=== PATIENT | male | born 1955 | race Caucasian/White ===

== ENCOUNTER 2019-01-21 17:31 | Emergency (ER) | payer OTHER ==
[2019-01-21] MEDS ORDERED: ONDANSETRON 4 MG/2 ML VIAL ONE (18:12)
[2019-01-21] MEDS ORDERED: MORPHINE 4 MG/ML SYR ONE ×2 (18:12→19:41)
--- NOTE | 2019-01-21 18:47 | RAD REPORT ---
EXAM DESCRIPTION: RAD - Hip Left 2 View - 01/21/2019 6:27 pm CLINICAL HISTORY: Left hip pain COMPARISON: None. FINDINGS: AP and frogleg views of the left hip were obtained. No acute fracture and no dislocation. Very advanced degenerative changes are present. Joint space is effaced. There is flattening of the fe moral head. Sclerotic changes are present in both the femoral head and acetabulum as well as subcorti precious degenerative cystic changes. No pathologic bone process. No periarticular mass or hematoma. IMPRESSION: Severe left hip joint degenerative changes with effacement of the joint space and flatte chino femoral head.
--- NOTE | 2019-01-21 19:40 | EDPHYS ---
Physician Documentation [facility] Name: Levar Godinez Age: 63 yrs Sex: Male : 1955 Arrival Date: 01/21/2019 Time: 17:36 Bed 8 Private MD: ED Physician Tae Berkowitz HPI: 01/21 17:50 This 63 yrs old Male presents to ER via EMS with complaints of Left Hip Pain. pm1 17:50 The patient or guardian reports pain. that occurred at home, There is no obvious pm1 deformity. The complaints affect the left hip. Onset: The symptoms/episode began/occurred Multiple months and has become worse the past 1 month. Modifying factors: The symptoms are alleviated by remaining still, the symptoms are aggravated by weight bearing. Associated signs and symptoms: Pertinent negatives: fever, numbness and weakness. The patient has experienced similar episodes in the past, chronically, and the symptoms today are exactly the same, Saw Dr. Evangelista about 1 month ago and was told that he needs a left hip replacement. Patient did not want to get it replaced at that time due to work. Patient would like to get it replaced now. No trauma. Historical: - Allergies: 17:43 No Known Allergies; ph - PMHx: 17:43 Hypertension; ph - PSHx: 17:43 right hip replacement; Appendectomy; bilateral knee scopes; ph - Immunization history:: Adult Immunizations unknown. - Social history:: Smoking status: Patient uses tobacco products, chewing tobacco. - Ebola Screening: : No symptoms or risks identified at this time. ROS: 17:50 Constitutional: Negative for fever, chills, and weight loss. pm1 17:50 Cardiovascular: Negative for chest pain, palpitations, and edema, Respiratory: Negative for shortness of breath, cough, wheezing, and pleuritic chest pain, Abdomen/GI: Negative for abdominal pain, nausea, vomiting, diarrhea, and constipation, Back: Negative for injury and pain, Skin: Negative for injury, rash, and discoloration. 17:50 Neuro: Negative for headache, weakness, numbness, tingling, and seizure. 17:50 MS/extremity: Positive for pain, of the left hip, Negative for decreased range of motion, deformity. 17:50 All other systems are negative. Exam: 17:50 Constitutional: This is a well developed, well nourished patient who is awake, alert, pm1 and in no acute distress. Head/Face: Normocephalic, atraumatic. Neck: Trachea midline, no thyromegaly or masses palpated, and no cervical lymphadenopathy. Supple, full range of motion without nuchal rigidity, or vertebral point tenderness. No Meningismus. Chest/axilla: Normal chest wall appearance and motion. Nontender with no deformity. No lesions are appreciated. Cardiovascular: Regular rate and rhythm with a normal S1 and S2. No gallops, murmurs, or rubs. Normal PMI, no JVD. No pulse deficits. Respiratory: Lungs have equal breath sounds bilaterally, clear to auscultation and percussion. No rales, rhonchi or wheezes noted. No increased work of breathing, no retractions or nasal flaring. Skin: Warm, dry with normal turgor. Normal color with no rashes, no lesions, and no evidence of cellulitis. 17:50 Musculoskeletal/extremity: Extremities: grossly normal except: noted in the left hip: tenderness, There is no evidence of decreased ROM, deformity, ROM: limited passive range of motion due to pain, in the left hip, Pulses: are normal with no appreciated deficits, noted to be 2+ in the left dorsalis pedis artery, Calf tenderness, is absent. 17:50 Neuro: Orientation: is normal, Motor: is normal, moves all fours. Vital Signs: 17:42 BP 149 / 86; Pulse 58; Resp 18; Temp 97.9; Pulse Ox 100% on R/A; Weight 122.47 kg; ph Height 6 ft. 1 in. (185.42 cm); Pain 10/10; 18:28 BP 151 / 86; Pulse 57; Resp 18; Pulse Ox 96% on R/A; ph 19:15 BP 155 / 75; Pulse 60; Resp 17; Pulse Ox 98% on R/A; Pain 6/10; rr5 19:35 BP 176 / 92; Pulse 65; Resp 19; Pulse Ox 99% ; Pain 10/10; rr5 19:42 BP 145 / 85; Pulse 62; Resp 16; Pulse Ox 98% ; Pain 10/10; rr5 17:42 Body Mass Index 35.62 (122.47 kg, 185.42 cm) ph MDM: 17:43 Patient medically screened. pm1 19:02 Data reviewed: vital signs. Data interpreted: Pulse oximetry: on room air is 98 %. pm1 Interpretation: normal. 19:20 Counseling: I had a detailed discussion with the patient and/or guardian regarding: the pm1 historical points, exam findings, and any diagnostic results supporting the discharge/admit diagnosis, radiology results, the need for outpatient follow up, for definitive care, a orthopedic surgeon. 19:20 Special discussion: Discussed with family and patient that there is no current pm1 indication for admission to the hospital. Family requested that I contact Dr. Evangelista for admission to hospital for left hip replacement. 19:25 Physician consultation: Daniel Evangelista MD was called at 19:25, was contacted at pm1 19:25, regarding patient's condition, and will see patient in office, Said that the patient can contact the office to schedule an appointment for Tuesday. Recalls patient, patient was recommend hip replacement in the past but refused. Due to patient's age does not recommend steroids and narcotics . 01/21 17:49 Order name: Hip Left 2 View XRAY; Complete Time: 18:54 pm1 Administered Medications: 18:23 Drug: morphine 4 mg Route: IVP; Site: right antecubital; ph 18:49 Follow up: Response: No adverse reaction; Pain is decreased; RASS: Alert and Calm (0) ph 18:23 Drug: Zofran 4 mg Route: IVP; Site: right antecubital; ph 18:49 Follow up: Response: No adverse reaction ph 19:46 Drug: morphine 4 mg {Note: rass 0.} Route: IVP; Site: right antecubital; rr5 20:07 Follow up: Response: No adverse reaction; Medication administered at discharge. rr5 Disposition: 01/22 13:02 Co-signature as Attending Physician, Tae Berkowitz MD I agree with the assessment and kdr plan of care. Disposition: 01/21/19 19:40 Discharged to Home. Impression: Pain in left hip. - Condition is Stable. - Discharge Instructions: Hip Pain. - Prescriptions for Mobic 7.5 mg Oral Tablet - take 1 tablet by ORAL route once daily take with food; 20 tablet. - Medication Reconciliation Form, Thank You Letter, Antibiotic Education, Prescription Opioid Use form. - Follow up: Emergency Department; When: As needed; Reason: Worsening of condition. Follow up: Private Physician; When: 2 - 3 days; Reason: Recheck today's complaints, Continuance of care, Re-evaluation by your physician. Follow up: Daniel Evangelista MD; When: 2 - 3 days; Reason: Recheck today's complaints, Continuance of care, Re-evaluation by your physician. - Problem is new. - Symptoms have improved. Signatures: Dispatcher [employer] EDMS Tae Berkowitz MD MD kdr Jada Jalloh RN RN bb Darline Tavera RN RN ph Jean Rivera, CAT DRIVER CAT DRIVER pm1 Will Saenz RN RN rr5 Corrections: (The following items were deleted from the chart) 01/21 19:43 19:40 01/21/2019 19:40 Discharged to Home. Impression: Pain in left hip. Condition is pm1 Stable. Forms are Medication Reconciliation Form, Thank You Letter, Antibiotic Education, Prescription Opioid Use. Follow up: Emergency Department; When: As needed; Reason: Worsening of condition. Follow up: Private Physician; When: 2 - 3 days; Reason: Recheck today's complaints, Continuance of care, Re-evaluation by your physician. Problem is new. Symptoms have improved. pm1 20:06 19:53 Misc. Order ordered. pm1 bb 20: 19:43 01/21/2019 19:40 Discharged to Home. Impression: Pain in left hip. Condition is bb Stable. Discharge Instructions: Hip Pain. Prescriptions for Diclofenac Sodium 75 mg Oral Tablet Sustained Release - take 1 tablet by ORAL route 2 times per day; 30 tablet. and Forms are Medication Reconciliation Form, Thank You Letter, Antibiotic Education, Prescription Opioid Use. Follow up: Emergency Department; When: As needed; Reason: Worsening of condition. Follow up: Private Physician; When: 2 - 3 days; Reason: Recheck today's complaints, Continuance of care, Re-evaluation by your physician. Follow up: Daniel Evangelista; When: 2 - 3 days; Reason: Recheck today's complaints, Continuance of care, Re-evaluation by your physician. Problem is new. Symptoms have improved. pm1 01/22 04:03 01/21 19:25 Physician consultation: Daniel Evangelista MD was called at 19:31, was pm1 contacted at 19:25, regarding patient's condition, and will see patient in office, Patient can contact the office to schedule an appointment for Tuesday. Recalls patient, patient was recommend hip replacement in the past but refused. Due to patient's age does not recommend steroids and narcotics , pm1
--- NOTE | 2019-01-21 19:40 | ER ---
Nurse's Notes [facility] Name: Levar Godinez Age: 63 yrs Sex: Male : 1955 Arrival Date: 01/21/2019 Time: 17:36 Bed 8 Private MD: Diagnosis: Pain in left hip Presentation: 01/21 17:37 Presenting complaint: EMS states: Pt c/o L hip pain, denies fall or known injury, ph states, " I have been feeling popping in my hip when I stand for about a month but today I couldn't walk on that leg w/out it popping and really hurting." Hx of arthritis and R hip replacement. 100 mcg Fentanyl and 1 gram IV Tylenol administered. Transition of care: patient was not received from another setting of care. Onset of symptoms was January 21, 2019. Risk Assessment: Do you want to hurt yourself or someone else? Patient reports no desire to harm self or others. Initial Sepsis Screen: Does the patient meet any 2 criteria? No. Patient's initial sepsis screen is negative. Does the patient have a suspected source of infection? No. Patient's initial sepsis screen is negative. Care prior to arrival: IV initiated. 18 GA, in the right antecubital area. 17:37 Method Of Arrival: EMS: [facility] ph 17:37 Acuity: ADRIANA 3 ph Historical: - Allergies: 17:43 No Known Allergies; ph - PMHx: 17:43 Hypertension; ph - PSHx: 17:43 right hip replacement; Appendectomy; bilateral knee scopes; ph - Immunization history:: Adult Immunizations unknown. - Social history:: Smoking status: Patient uses tobacco products, chewing tobacco. - Ebola Screening: : No symptoms or risks identified at this time. Screenin:27 Abuse screen: Denies threats or abuse. Denies injuries from another. Nutritional ph screening: No deficits noted. Tuberculosis screening: No symptoms or risk factors identified. Fall Risk No fall in past 12 months (0 pts). No secondary diagnosis (0 pts). IV access (20 points). Ambulatory Aid- Crutches/Cane/Walker (15 pts). Gait- Impaired (20 pts.). Mental Status- Oriented to own ability (0 pts). Total Morales Fall Scale indicates High Risk Score (45 or more points). Fall prevention measures have been instituted. Side Rails Up X 2 Frequent Obs/Assessments Occuring Family Present and informed to notify staff if the need to leave the bedside As available patient and family educated on Fall Prevention Program and Strategies. Assessment: 17:45 General: Appears in no apparent distress. uncomfortable, well groomed, Behavior is ph calm, cooperative, appropriate for age. Pain: Complains of pain in left hip. Neuro: Level of Consciousness is awake, alert, obeys commands, Oriented to person, place, time, situation. Cardiovascular: Capillary refill < 3 seconds in bilateral fingers Patient's skin is warm and dry. Cardiovascular: Pulses are 3+ in right dorsalis pedis artery and left dorsalis pedis artery. Respiratory: Airway is patent Respiratory effort is even, unlabored, Respiratory pattern is regular, symmetrical. Derm: Skin is intact, is healthy with good turgor, Skin is pink, warm \\T\\ dry. Musculoskeletal: Circulation, motion, and sensation intact. Range of motion: limited in left hip Reports pain in left hip. 19:00 General: Appears in no apparent distress. comfortable, Behavior is calm, cooperative, rr5 appropriate for age. Pain: Complains of pain in left hip Pain radiates to left leg Pain currently is 6 out of 10 on a pain scale. Quality of pain is described as aching, Pain began gradually, Is intermittent. Neuro: Level of Consciousness is awake, alert, obeys commands, Oriented to person, place, time, situation, Appropriate for age. Cardiovascular: Capillary refill < 3 seconds Patient's skin is warm and dry. Respiratory: Airway is patent Respiratory effort is even, unlabored, Respiratory pattern is regular, symmetrical. GI: No signs and/or symptoms were reported involving the gastrointestinal system. : No signs and/or symptoms were reported regarding the genitourinary system. EENT: No signs and/or symptoms were reported regarding the EENT system. Derm: Skin is intact, is healthy with good turgor, Skin is pink, warm \\T\\ dry. Musculoskeletal: Circulation, motion, and sensation intact. Capillary refill < 3 seconds. 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 ED provider spoke to dr. evangelista thru phone and responded to make appointment on [place]. Charge nurse aware. 19:42 Reassessment: complaints of left hip pain pain score 10/10. ED provider aware with rr5 order made and carried out. see MAR. 19:56 Reassessment: Reassessment: pt and spouse angry because he is not going to be admitted bb for degenerative hip disease, pt and family refusing discharge instructions pt assisted to exit via wheelchair. Vital Signs: 17:42 BP 149 / 86; Pulse 58; Resp 18; Temp 97.9; Pulse Ox 100% on R/A; Weight 122.47 kg; ph Height 6 ft. 1 in. (185.42 cm); Pain 10/10; 18:28 BP 151 / 86; Pulse 57; Resp 18; Pulse Ox 96% on R/A; ph 19:15 BP 155 / 75; Pulse 60; Resp 17; Pulse Ox 98% on R/A; Pain 6/10; rr5 19:35 BP 176 / 92; Pulse 65; Resp 19; Pulse Ox 99% ; Pain 10/10; rr5 19:42 BP 145 / 85; Pulse 62; Resp 16; Pulse Ox 98% ; Pain 10/10; rr5 17:42 Body Mass Index 35.62 (122.47 kg, 185.42 cm) ph ED Course: 17:36 Patient arrived in ED. ph 17:42 Triage completed. ph 17:43 Jean Rivera NP is PHCP. pm1 17:43 Tae Berkowitz MD is Attending Physician. pm1 17:44 Arm band placed on Patient placed in an exam room, on a stretcher, on pulse oximetry. ph 18:04 Darline Tavera, RN is Primary Nurse. ph 18:27 Patient has correct armband on for positive identification. Bed in low position. Call ph light in reach. Side rails up X2. Pulse ox on. NIBP on. Door closed. Noise minimized. Warm blanket given. 18:28 Hip Left 2 View XRAY In Process Unspecified. EDMS 18:59 Maintain EMS IV. Dressing intact. Good blood return noted. Site clean \\T\\ dry. Gauge \\T\\ ph site: 18 LAC. 19:43 Daniel Evangelista MD is Referral Physician. pm1 20:04 IV discontinued, intact, bleeding controlled, No redness/swelling at site. Pressure bb dressing applied. 20:04 No provider procedures requiring assistance completed. bb Administered Medications: 18:23 Drug: morphine 4 mg Route: IVP; Site: right antecubital; ph 18:49 Follow up: Response: No adverse reaction; Pain is decreased; RASS: Alert and Calm (0) ph 18:23 Drug: Zofran 4 mg Route: IVP; Site: right antecubital; ph 18:49 Follow up: Response: No adverse reaction ph 19:46 Drug: morphine 4 mg {Note: rass 0.} Route: IVP; Site: right antecubital; rr5 20:07 Follow up: Response: No adverse reaction; Medication administered at discharge. rr5 Outcome: 19:40 Discharge ordered by MD. pm1 20:04 Discharged to home via wheelchair, with family. bb 20:04 Condition: stable 20:04 Discharge instructions given to patient, family, Instructed on discharge instructions, follow up and referral plans. 20:06 Patient left the ED. bb Signatures: Dispatcher [employer] Jada Matute RN RN bb Darline Tavera RN RN Jean Rivera, SENG UNDERWEAR FINISHER pm1 Will Saenz RN RN rr5
[2019-01-21 20:11] VITALS: TEMP 97.9
[2019-01-21 20:14] VITALS: BP 155/75; O2SAT 98
== END 2019-01-21 20:06 | disposition home or self-care (01) ==
LOC: ER 17:31
DX: M25.552 Pain in left hip (principal); Z96.641 Presence of right artificial hip joint; Z72.3 Lack of physical exercise
CPT/HCPCS: 73502; J2405; 96374; 96375; 99284

== ENCOUNTER 2020-01-18 17:19 | Emergency (ER) | payer OTHER ==
[2020-01-18] MEDS ORDERED: DIAZEPAM 5 MG TABLET ONE (18:21)
[2020-01-18] MEDS ORDERED: MORPHINE 4 MG/ML SYR ONE (18:22)
[2020-01-18] MEDS ORDERED: KETOROLAC 30 MG/ML INJ ONE (18:22)
--- NOTE | 2020-01-18 18:55 | EDPHYS ---
Physician Documentation [facility] Name: Levar Godinez Age: 64 yrs Sex: Male : 1955 Arrival Date: 01/18/2020 Time: 17:22 Bed 17 Private MD: ED Physician Jak Woodson HPI: 01/17 17:34 This 64 yrs old Male presents to ER via Ambulatory with complaints of Back jmm Pain. 17:34 The patient presents with pain that is acute. Onset: The symptoms/episode jmm began/occurred acutely, 2 day(s) ago. The pain does not radiate. Associated signs and symptoms: Pertinent negatives: abdominal pain, chest pain, constipation, dysuria, fever, headache, hematuria, incontinence, nausea, numbness, tingling, urinary retention, vomiting, weakness. The problem was sustained when bending over, from twisting. Historical: - Allergies: 17:30 No Known Allergies; ll1 - PMHx: 17:30 Hypertension; ll1 - PSHx: 17:30 bilateral knee scopes; right hip replacement; Appendectomy; L hip replacement; ll1 - Immunization history:: Flu vaccine is not up to date. - Social history:: Smoking status: Patient denies any tobacco usage or history of. ROS: 17:34 Constitutional: Negative for fever, chills, and weight loss, Cardiovascular: Negative jmm for chest pain, palpitations, and edema, Respiratory: Negative for shortness of breath, cough, wheezing, and pleuritic chest pain. 17:34 Back: Positive for pain with movement. 17:34 All other systems are negative. Exam: 17:34 Constitutional: This is a well developed, well nourished patient who is awake, alert, jmm and in no acute distress. Head/Face: atraumatic. Eyes: EOMI, no conjunctival erythema appreciated ENT: Moist Mucus Membranes Neck: Trachea midline, Supple Chest/axilla: Normal chest wall appearance and motion. Cardiovascular: Regular rate and rhythm. No edema appreciated Respiratory: Normal respirations, no respiratory distress appreciated Abdomen/GI: Non distended, soft Back: Normal ROM Skin: General appearance color normal 17:34 Musculoskeletal/extremity: extensor hallucis longus intact bilaterally. 17:34 Neuro: Orientation: is normal, Mentation: is normal, Memory: is normal. 17:34 Psych: Behavior/mood is pleasant, cooperative. Vital Signs: 17:28 BP 146 / 93; Pulse 75; Resp 18; Temp 98.5; Pulse Ox 99% ; Weight 122.47 kg; Height 6 ll1 ft. 0 in. (182.88 cm); Pain 9/10; 19:15 BP 135 / 86; Pulse 73; Resp 16 S; Pulse Ox 99% on R/A; jd3 17:28 Body Mass Index 36.62 (122.47 kg, 182.88 cm) ll1 MDM: 17:34 Patient medically screened. tiffanie 18:52 Data reviewed: vital signs, nurses notes. Counseling: I had a detailed discussion with savanna the patient and/or guardian regarding: the historical points, exam findings, and any diagnostic results supporting the discharge/admit diagnosis, the need for outpatient follow up, to return to the emergency department if symptoms worsen or persist or if there are any questions or concerns that arise at home. ED course: Pain relieved in the ED. Patient is advised to follow up with pain management and otherwise given strict return precautions. Patient understood and agrees with the plan of care. . Administered Medications: 18:17 Drug: morphine 4 mg Route: IM; Site: right deltoid; jd3 19:16 Follow up: Response: No adverse reaction; RASS: Alert and Calm (0) jd3 18:17 Drug: Valium 5 mg Route: PO; jd3 19:16 Follow up: Response: No adverse reaction jd3 18:17 Drug: Ketorolac 30 mg Route: IM; Site: left deltoid; jd3 19:16 Follow up: Response: No adverse reaction jd3 Disposition: 01/18 17:57 Co-signature as Attending Physician, Jak Woodson MD I agree with the assessment and [facility] plan of care. Disposition: 01/18/20 18:54 Discharged to Home. Impression: Muscle spasm of back. - Condition is Stable. - Discharge Instructions: Muscle Cramps and Spasms. - Prescriptions for Zanaflex 4 mg Oral Tablet - take 1 tablet by ORAL route every 8 hours As needed; 20 tablet. - Medication Reconciliation Form, Thank You Letter, Antibiotic Education, Prescription Opioid Use form. - Follow up: Private Physician; When: 2 - 3 days; Reason: Recheck today's complaints, Continuance of care, Re-evaluation by your physician. Signatures: Jak Woodson MD MD cha Mickail, Joel, PA PA jmm Davies, Jonathon, RN RN jd3 Atilio Larsen RN RN ll1 Corrections: (The following items were deleted from the chart) 01/17 19:16 18:54 01/18/2020 18:54 Discharged to Home. Impression: Muscle spasm of back. Condition jd3 is Stable. Forms are Medication Reconciliation Form, Thank You Letter, Antibiotic Education, Prescription Opioid Use. Follow up: Private Physician; When: 2 - 3 days; Reason: Recheck today's complaints, Continuance of care, Re-evaluation by your physician. savanna
--- NOTE | 2020-01-18 18:55 | ER ---
Nurse's Notes [facility] Name: Levar Godinez Age: 64 yrs Sex: Male : 1955 Arrival Date: 01/18/2020 Time: 17:22 Bed 17 [facility] MD: Diagnosis: Muscle spasm of back Presentation: 01/17 17:28 Chief complaint: Patient states: Left lower back pain for 2 days after tripping over 1 lumbar and falling yesterday. Coronavirus screen: Client denies travel out of the [place] in the last 14 days. At this time, the client does not indicate any symptoms associated with coronavirus-19. Ebola Screen: Patient denies travel to an Ebola-affected area in the 21 days before illness onset. Initial Sepsis Screen: Does the patient meet any 2 criteria? No. Patient's initial sepsis screen is negative. Does the patient have a suspected source of infection? Yes: Bone or joint infection. Risk Assessment: Do you want to hurt yourself or someone else? Patient reports no desire to harm self or others. Onset of symptoms was January 17, 2020. 17:28 Method Of Arrival: Ambulatory [facility] 17:28 Acuity: ADRIANA 3 ll1 Historical: - Allergies: 17:30 No Known Allergies; ll1 - PMHx: 17:30 Hypertension; ll1 - PSHx: 17:30 bilateral knee scopes; right hip replacement; Appendectomy; L hip replacement; ll1 - Immunization history:: Flu vaccine is not up to date. - Social history:: Smoking status: Patient denies any tobacco usage or history of. Screenin:51 Abuse screen: Denies threats or abuse. Nutritional screening: No deficits noted. jd3 Tuberculosis screening: No symptoms or risk factors identified. Fall Risk Ambulatory Aid- None/Bed Rest/Nurse Assist (0 pts). Gait- Normal/Bed Rest/Wheelchair (0 pts) Mental Status- Oriented to own ability (0 pts). Total Morales Fall Scale indicates No Risk (0-24 pts). Assessment: 18:17 General: Appears in no apparent distress. uncomfortable, Behavior is calm, cooperative, jd3 appropriate for age. Pain: Complains of pain in back Quality of pain is described as sharp, stabbing. Neuro: Level of Consciousness is awake, alert, obeys commands, Oriented to person, place, time, situation. Cardiovascular: Denies chest pain, Capillary refill < 3 seconds Patient's skin is warm and dry. Respiratory: Airway is patent Respiratory effort is even, unlabored, Respiratory pattern is regular, symmetrical, Denies cough, shortness of breath. GI: No signs and/or symptoms were reported involving the gastrointestinal system. : No signs and/or symptoms were reported regarding the genitourinary system. EENT: No signs and/or symptoms were reported regarding the EENT system. Derm: Skin is intact, Skin is dry, Skin is normal, Skin temperature is warm. Musculoskeletal: Circulation, motion, and sensation intact. Range of motion: intact in all extremities. 18:51 Reassessment: Patient appears in no apparent distress at this time. No changes from [facility] previously documented assessment. Patient and/or family updated on plan of care and expected duration. Pain level reassessed. Patient is alert, oriented x 3, equal unlabored respirations, skin warm/dry/pink. 19:15 Reassessment: Patient appears in no apparent distress at this time. Patient and/or jd3 family updated on plan of care and expected duration. Pain level reassessed. Patient is alert, oriented x 3, equal unlabored respirations, skin warm/dry/pink. Patient states feeling better. Vital Signs: 17:28 BP 146 / 93; Pulse 75; Resp 18; Temp 98.5; Pulse Ox 99% ; Weight 122.47 kg; Height 6 ll1 ft. 0 in. (182.88 cm); Pain 9/10; 19:15 BP 135 / 86; Pulse 73; Resp 16 S; Pulse Ox 99% on R/A; jd3 17:28 Body Mass Index 36.62 (122.47 kg, 182.88 cm) ll1 ED Course: 17:22 Patient arrived in ED. ds1 17:30 Triage completed. ll1 17:30 Arm band placed on Patient placed in an exam room, on a stretcher. 1 17:34 Armando Marie PA is PHCP. [facility] 17:34 Jak Woodson MD is Attending Physician. [facility] 17:45 Luis Gibbons RN is Primary Nurse. jd3 18:51 Patient has correct armband on for positive identification. Bed in low position. Call j light in reach. Side rails up X 1. Pulse ox on. NIBP on. 19:15 No provider procedures requiring assistance completed. Patient did not have IV access jd3 during this emergency room visit. Administered Medications: 18:17 Drug: morphine 4 mg Route: IM; Site: right deltoid; jd3 19:16 Follow up: Response: No adverse reaction; RASS: Alert and Calm (0) jd3 18:17 Drug: Valium 5 mg Route: PO; jd3 19:16 Follow up: Response: No adverse reaction jd3 18:17 Drug: Ketorolac 30 mg Route: IM; Site: left deltoid; jd3 19:16 Follow up: Response: No adverse reaction jd3 Outcome: 18:54 Discharge ordered by . savanna 19:15 Discharged to home ambulatory, with family. jd3 19:15 Condition: stable 19:15 Discharge instructions given to patient, Instructed on discharge instructions, follow up and referral plans. medication usage, Demonstrated understanding of instructions, follow-up care, medications, Prescriptions given X 1. 19:16 Patient left the ED. jd3 Signatures: Armando Marie PA PA jmm Sanford, Demi ds1 Luis Gibbons RN RN jAtilio Norton RN RN ll1
[2020-01-18 19:24] VITALS: TEMP 98.5; O2SAT 99
[2020-01-18 19:25] VITALS: BP 135/86
== END 2020-01-18 19:16 | disposition home or self-care (01) ==
LOC: ER 17:19
DX: M62.830 Muscle spasm of back (principal); I10 Essential (primary) hypertension
CPT/HCPCS: 96372; 99283

== ENCOUNTER 2020-03-31 15:53 | Emergency (ER) | payer OTHER ==
--- OUTSIDE RECORDS SUMMARY | 2020-03-31 15:55 | XMS REPORT | Clinical Summary ---
:1955 Author Organization [facility] Address [address] [place] [address] Care Team Providers Name Role Phone Asked, Pcp Primary Care Provider Unavailable Allergies Not on File Medications Not on file Active Problems Not on file Encounters Date Type Specialty Care Team Description 03/17/2020 Transcribe Orders Luis Bush nosalley, lumbar region without neurogenic claudication (Primary Dx); MD Anthony Other intervert ebral disc degeneration, lumbar region; Other secondary scoliosis, lumbar region 03/11/2020 Hospital Encounter Radiology Luis Otto st enosis, lumbar MD Anthony region with wesly rogenic claudication 03/11/2020 Travel 02/15/2020 Travel 02/15/2020 Transcribe Orders Luis Bush nosalley, lumbar MD Anthony region with wesly rogenic claudication (P rimary Dx) after 03/31/2019 Social History Tobacco Use Types Packs/Day Years Used Date Never Assessed Sex Assigned at Date Recorded Not on file Job Start Date Occupation Industry Not on file Not on file Not on file COVID-19 Exposure Response Date Recorded In the last month, have you been in contact with No / Unsure 03/11/2020 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 Last Filed Vital Signs Not on file Plan of Treatment Date Type Specialty Care Team Description 04/22/2020 [place] [id number] [address] Health Maintenance Due Date Last Done Comments COVID-19 VACCINE (#1) 1973 COLONOSCOPY SCREENING 10/16/2007 SHINGLES VACCINES (#1) 10/16/2007 INFLUENZA VACCINE 11/10/2019 Procedures Procedure Name Priority Date/Time Associated Diagnosis Comme nts MRI LUMBAR SPINE WO Routine 03/11/2020 11:44 Spinal stenosis, Results for this CONTRAST AM IMPREGNATOR OPERATOR lumbar region with procedure are in neurogenic the results claudication section. after 03/31/2019 Results MRI Lumbar Spine Wo Contrast (03/11/2020 11:44 AM IMPREGNATOR OPERATOR) Specimen Narrative Performed At This result has an attachment that is no t available. EXAMINATION: MRI LUMBAR SPINE WO CONTRAST [facility] CLINICAL HISTORY: M48.062 Spinal stenosi s lumbar region with neurogenic claudication, m48.062 COMPARISON: None TECHNIQUE: Multiplanar multisequence non contrast enhanced examination was performed of the Lumbar spine. FINDINGS: There are multiple Schmorl's nodes. I do not see definite evidence of acute endplate fracture or upper sacral fracture. There are degenerative changes of the sacroiliac joints. The distal cord ends at the T12-L1 level and is unremarkable. There is decreased T2 signal intensity in multiple lumbar discs . L5-S1: There is greater posterior disc space narrowing. There is dorsal spondylosis indenting the anterior subarachnoid space. There are facet hypertrophic changes. There is no significant central c anal stenosis. There is moderate to severe right and mild left foraminal stenosis with asymme tric spondylosis and/or protrusion in the inferior right foramen and extraforaminal region. It extends near the nerve in the extraforaminal region. There is greater right disc space narrowing with surrounding degenerative changes and Schmorl's nodes. L4-5: There is greater posterior and lef t disc space narrowing with surrounding degenerative changes and Schmorl's nodes around the left disc. There is dorsal spondylosis indenting the anterior subarach noid space extending near the left L5 nerve root. There are facet hypertrophic changes ind enting the posterolateral subarachnoid space. There is greater narrowing of the left lateral recess with mild narrowing in the AP dimension of the central subarachnoid space. There is severe left and mild to moderate right foraminal stenosis. There is left extraforaminal spondylosis extending near the nerve. L3-4: There is greater posterior disc sp allyson narrowing. There is dorsal spondylosis with bulge and mass effect on the nerve roots in the subarachnoid space. There is posterior epidural fat. There is mode rate to severe narrowing of the subarachnoid space. There are facet hypertrophic changes wi th severe left and moderate right foraminal stenosis. L2-3: There is severe right and posterio r disc space narrowing and surrounding endplate degenerative changes. There is retrolisthesis with uncovered disc and bulge with mass effect on the nerve roots in the anterior subarachnoid space. There is posterior epidural fat. There is moderate to elisabeth re narrowing of the subarachnoid space. There are facet hypertrophic changes with lateral recess stenosis. There is a protrusion and spondylosis in the right fo ramen and extraforaminal region extending into the nerve with severe right foramen stenosis . There is [id number] anterior inferior left foramen stenosis. L1-2: There is greater posterior disc sp allyson narrowing. There is bulge flattening the anterior subarachnoid space. There are facet hypertrophic changes and posterior epidural fat. There is mild narrowing in the AP dimension of the central subarachnoid space and mild foramen stenosis. T11-12: There is dorsal spondylosis in denting the anterior subarachnoid space. The study was not performed for proper i maging of the soft tissue structures in the abdomen and pelvis. There is partial visualization of a large right kidney cyst. IMPRESSION: Degenerative changes. There is prominent foraminal stenosis on the left at L4-5 and L3-4. There is prominent right foraminal stenosis at L5-S1 and L2-3 and to a lesser extent at L3-4. Extra foraminal spondylosis and protrusi ons at some of the levels extending through the nerves. Narrowing of the subarachnoid space more prominent at L3-4 and L2-3. [facility]-[id number] Procedure Note Hm Interface, Radiology Results - 03/11/2020 12:47 PM IMPREGNATOR OPERATOR EXAMINATION: MRI LUMBAR SPINE WO CONTRAST CLINICAL HISTORY: M48.062 Spinal stenosi s lumbar region with neurogenic claudication, m48.062 COMPARISON: None TECHNIQUE: Multiplanar multisequence non contrast enhanced examination was performed of the Lumbar spine. FINDINGS: There are multiple Schmorl's nodes. I do not see definite evidence of acute endplate fracture or upper sacral fracture. There are degenerative changes of the sacroiliac joints. The distal cord ends at the T12-L1 level and is unremarkable. There is decreased T2 signal intensity in multipl e lumbar discs. L5-S1: There is greater posterior disc space narrowing. There is dorsal spondylosis indenting the anterior subarachnoid space. There are facet hypertrophic changes. There is no significant central canal stenosis. There is moderate to severe right and mild left foraminal stenosis with asymme tric spondylosis and/or protrusion in the inferior right foramen and extraforaminal region. It extends near the nerve in the extraforaminal region. There is greater right disc space narrowing with surrounding degenerative changes and Schmorl's nodes . L4-5: There is greater posterior and lef t disc space narrowing with surrounding degenerative changes and Schmorl's nodes around the left disc. There is dorsal spondylosis indenting the anterior subarachnoid space extending near the left L5 nerve root. There are facet hypertrophic changes ind enting the posterolateral subarachnoid space. There is greater narrowing of the left lateral recess with mild narrowing in the AP dimension of the central subarachnoid space. There is severe left and mild to moderate right foraminal stenosis. There is left extraforaminal spondylosis extending near the nerve. L3-4: There is greater posterior disc sp allyson narrowing. There is dorsal spondylosis with bulge and mass effect on the nerve roots in the subarachnoid space. There is posterior epidural fat. There is moderate to severe narrowing of the subarachnoid spa ce. There are facet hypertrophic changes wi th severe left and moderate right foraminal stenosis. L2-3: There is severe right and posterio r disc space narrowing and surrounding endplate degenerative changes. There is retrolisthesis with uncovered disc and bulge with mass effect on the nerve roots in the anterior subarachnoid space. There is po sterior epidural fat. There is moderate to elisabeth re narrowing of the subarachnoid space. There are facet hypertrophic changes with lateral recess stenosis. There is a protrusion and spondylosis in the right foramen and extraforaminal region extending into the nerve with severe right foramen stenosis . There is gqam-db-xorvgpwi anterior inferior left foramen stenosis. L1-2: There is greater posterior disc sp allyson narrowing. There is bulge flattening the anterior subarachnoid space. There are facet hypertrophic changes and posterior epidural fat. There is mild narrowing in the AP dimension of the central subarachnoid space and mild foramen stenosis. T11-12: There is dorsal spondylosis ind enting the anterior subarachnoid space. The study was not performed for proper i maging of the soft tissue structures in the abdomen and pelvis. There is partial visualization of a large right kidney cyst. IMPRESSION: Degenerative changes. There is prominent foraminal stenosis on the left at L4-5 and L3-4. There is prominent right foraminal stenosis at L5-S1 and L2-3 and to a lesser extent at L3-4. Extra foraminal spondylosis and protrusi ons at some of the levels extending through the nerves. Narrowing of the subarachnoid space more prominent at L3-4 and L2-3. 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
--- OUTSIDE RECORDS SUMMARY | 2020-03-31 15:56 | XMS REPORT | Continuity of Care Document ---
:1955 Author Organization [facility] t Address [address] [place] [address] Care Team Providers Name Role Phone Asked, Pcp Primary Care Physician Unavailable Anthony Chang MD Attending Clinician Lab, Fam Pob I Attending Clinician Unavailable Pob, Lab Main Attending Clinician Unavailable Pob1, Care Clinic Attending Clinician Unavailable Doctor Unassigned, Name Attending Clinician Unavailable Hiram Evangelista MD Attending Clinician Hiram Evangelista MD Admitting Clinician Payers Payer Name Policy Type Policy Effective Date Expiration Date Sour Number MEDICAREMEDICARE PART [id number] 2010 Angel Kitchen AND 00:00:00 [facility] [id number]/04/2009 [place] [place] [place] Problems This patient has no known problems. Allergies, Adverse Reactions, Alerts This patient has no known allergies or adverse reactions. Social History Social Habit Start Date Stop Date Quantity Comments Source Sex Assigned At Mariusz Avery Exposure to SARS-CoV-2 Not sure Angel Avery (event) Medications This patient has no known medications. Procedures Procedure Date / Time Performed Performing Clinician Vianca e MRI LUMBAR SPINE WO 2020-03-11 11:44:33 Alex Chang [facility]astrian CONTRAST Plan of Care Planned Activity Planned Date Details Comments Source Future Scheduled 2019-11-10 INFLUENZA VACCINE [place] [facility] 00:00:00 [code = INFLUENZA VACCINE] Future Scheduled 2007-10-16 COLONOSCOPY SCREENING [facility] us[facility]ora [facility] Test 00:00:00 [code = COLONOSCOPY SCREENING] Future Scheduled 2007-10-16 SHINGLES VACCINES [place] [facility] 00:00:00 (#1) [code = SHINGLES VACCINES (#1)] Future Scheduled 1973 COVID-19 VACCINE (#1) Ho mariusz [facility] Test 00:00:00 [code = COVID-19 VACCINE (#1)] Encounters Start End Encounter Admission Attending Care Care Encounter Source Date/Time Date/Time Type Type Clinicians Facility Department ID 2020-03-11 2020-03-11 Outpatient ALEX CHANG [facility] [id number] [place] 00:00:00 00:00:[address] 2019 2019 Laboratory Lab, [facility] [id number] 07:32:33 07:52:33 Only Fam Pob Health [id number] [place] [id number] Professio [phone] nal [address] 2019-08-27 2019-08-27 Lsw Pob, [facility] 1.2.840.114 [id number] 15:41:32 15:56:32 Visit Lab Main [place] [id number] [place] [id number] Professio [phone] [address] 2019-08-27 2019-08-27 Urgent Pob1, Acute [place] 1.2.840.114 [id number] 14:26:36 14:46:36 [facility] [id number] [place] [id number] Professio [phone] nal 0[address] 2019-08-27 2019-08-27 Orders Doctor ALEX [id number] 00:00:00 00:00:00 Only Unassigned, [place] [id number] [facility] [id number] 2019-05-16 2019-05-17 [facility] [id number] 06:00:00 14:39:00 Encounter Daniel Palmer [id number]7.2.686 [place] [phone] [id number] 2019-05-16 2019-05-16 Orders Doctor ALEX [id number] 00:00:00 00:00:00 Only Unassigned, [place] [id number] [place] [address]686 [id number] [id number] 2019-05-14 2019-05-14 Orders Doctor ALEX [id number] 00:00:00 00:00:00 Only Unassigned, [place] [id number] [place] [address]686 [id number] Results Test Description Test Time Test Comments Results Result Sourc e Comments MRI Lumbar Spine Hm Interface, [place] Wo Contrast 1 Radiology Results Method ist 12:44:42 Incoming - 03/11/2020 12:47 PM CSTEXAMINATION: MRI LUMBAR SPINE WO CONTRASTCLINICAL HISTORY: M48.062 Spinal stenosis lumbar region with neurogenic claudication, m48.062COMPARISON: NoneTECHNIQUE: Multiplanar multisequence noncontrast enhanced examination was performed of the Lumbar spine.FINDINGS:There are multiple Schmorl's nodes. I do not see definite evidence of acute endplate fracture or upper sacral fracture. There are degenerative changes of the sacroiliac joints. The distal cord ends at the T12-L1 level and is unremarkable. There is decreased T2 signal intensity in multiple lumbar discs.L5-S1: There is greater posterior disc space narrowing. There is dorsal spondylosis indenting the anterior subarachnoid space. There are facet hypertrophic changes. There is no significant central canal stenosis. There is moderate to severe right and mild left foraminal stenosis with asymmetric spondylosis and/or protrusion in the inferior right foramen and extraforaminal region. It extends near the nerve in the extraforaminal region. There is greater right disc space narrowing with surrounding degenerative changes and Schmorl's nodes.L4-5: There is greater posterior and left disc space narrowing with surrounding degenerative changes and Schmorl's nodes around the left disc. There is dorsal spondylosis indenting the anterior subarachnoid space extending near the left L5 nerve root. There are facet hypertrophic changes indenting the posterolateral subarachnoid space. There is greater narrowing of the left lateral recess with mild narrowing in the AP dimension of the central subarachnoid space. There is severe left and mild to moderate right foraminal stenosis. There is left extraforaminal spondylosis extending near the nerve.L3-4: There is greater posterior disc space narrowing. There is dorsal spondylosis with bulge and mass effect on the nerve roots in the subarachnoid space. There is posterior epidural fat. There is moderate to severe narrowing of the subarachnoid space. There are facet hypertrophic changes with severe left and moderate right foraminal stenosis.L2-3: There is severe right and posterior disc space narrowing and surrounding endplate degenerative changes. There is retrolisthesis with uncovered disc and bulge with mass effect on the nerve roots in the anterior subarachnoid space. There is posterior epidural fat. There is moderate to severe narrowing of the subarachnoid space. There are facet hypertrophic changes with lateral recess stenosis. There is a protrusion and spondylosis in the right foramen and extraforaminal region extending into the nerve with severe right foramen stenosis. There is oezv-hr-cjqmwurj anterior inferior left foramen stenosis.L1-2: There is greater posterior disc space narrowing. There is bulge flattening the anterior subarachnoid space. There are facet hypertrophic changes and posterior epidural fat. There is mild narrowing in the AP dimension of the central subarachnoid space and mild foramen stenosis.T11-12: There is dorsal spondylosis indenting the anterior subarachnoid space.The study was not performed for proper imaging of the soft tissue structures in the abdomen and pelvis. There is partial visualization of a large right kidney cyst.IMPRESSION: Degenerative changes. There is prominent foraminal stenosis on the left at L4-5 and L3-4. There is prominent right foraminal stenosis at L5-S1 and L2-3 and to a lesser extent at L3-4.Extra foraminal spondylosis and protrusions at some of the levels extending through the nerves.Narrowing of the subarachnoid space more prominent at L3-4 and L2-3.[id number]
[2020-03-31] MEDS ORDERED: IBUPROFEN 400 MG TAB ONE (17:29)
[2020-03-31] MEDS ORDERED: HYDROCODONE/APAP 10/325 TAB ONE (17:29)
--- NOTE | 2020-03-31 17:39 | RAD REPORT ---
EXAM DESCRIPTION: RAD - Elbow Left 2 View - 03/31/2020 5:24 pm CLINICAL HISTORY: PAIN COMPARISON: Elbow Left 3 View dated 11/21/2016 FINDINGS: Degenerative changes are present about the elbow joint. Small olecranon spur is evident. E levated anterior and posterior fat pads are present likely indicating that a radiographically occult fracture is present. Followup CT or MR imaging of the elbow would be advised.
--- NOTE | 2020-03-31 17:40 | RAD REPORT ---
EXAM DESCRIPTION: RAD - Shoulder Left 2 View - 03/31/2020 5:24 pm CLINICAL HISTORY: PAIN COMPARISON: Shoulder Left 2 View dated 11/21/2016 FINDINGS: AC joint degenerative changes are present. Mild glenohumeral arthritic changes are noted. No acute fracture or dislocation evident.
--- NOTE | 2020-03-31 17:44 | EDPHYS ---
Physician Documentation [facility] Name: Levar Godinez Age: 64 yrs Sex: Male : 1955 Arrival Date: 03/31/2020 Time: 15:55 Bed 15 Private MD: Kael Mobley R ED Physician Romie Oliver HPI: 03/31 16:11 This 64 yrs old Male presents to ER via Ambulatory with complaints of Fall rn Injury, Arm Pain. 16:11 Details of fall: The patient fell from an upright position, while standing. Onset: The rn symptoms/episode began/occurred just prior to arrival. Associated injuries: The patient sustained left shoulder and left elbow. Severity of symptoms: At their worst the symptoms were moderate, in the emergency department the symptoms are unchanged. The patient has not experienced similar symptoms in the past. The patient has not recently seen a physician. Reports fall from standing, braced with arms up, landed on table, reports pain to left elbow and left shoulder. No head or neck injury.. Historical: - Allergies: 16:02 No Known Allergies; iw - Home Meds: 16:02 lisinopril 40 mg Oral tab 1 tab once daily [Active]; Hydrocodone-Acetaminophen Oral iw [Active]; - PMHx: 16:02 Hypertension; Back pain; iw - PSHx: 16:02 bilateral knee scopes; right hip replacement; Appendectomy; L hip replacement; iw - Immunization history:: Adult Immunizations up to date. - Social history:: Smoking status: Patient denies any tobacco usage or history of. - Family history:: not pertinent. - Hospitalizations: : No recent hospitalization is reported. ROS: 16:11 Constitutional: Negative for fever, chills, and weight loss, Eyes: Negative for injury, rn pain, redness, and discharge, Neck: Negative for injury, pain, and swelling, Cardiovascular: Negative for chest pain, palpitations, and edema, Respiratory: Negative for shortness of breath, cough, wheezing, and pleuritic chest pain, Abdomen/GI: Negative for abdominal pain, nausea, vomiting, diarrhea, and constipation, Back: Negative for injury and pain, MS/Extremity: + left elbow and left shoulder pain Skin: Negative for injury, rash, and discoloration, Neuro: Negative for headache, weakness, numbness, tingling, and seizure. Exam: 16:11 Constitutional: This is a well developed, well nourished patient who is awake, alert, rn and in no acute distress. Head/Face: Normocephalic, atraumatic. Cardiovascular: Regular rate and rhythm. No pulse deficits. MS/ Extremity: Pulses equal, no cyanosis. + left elbow tenderness with painful ROM and proximal forearm tenderness. + mild painful ROM left shoulder, without focal bony tenderness. No pain at wrist or hand. NV intact Neuro: Awake and alert, GCS 15 Vital Signs: 16:03 BP 122 / 101; Pulse 84; Resp 18 S; Temp 98.0; Pulse Ox 98% on R/A; Weight 122.47 kg; iw Height 6 ft. 0 in. (182.88 cm); Pain 8/10; 16:03 Body Mass Index 36.62 (122.47 kg, 182.88 cm) iw MDM: 16:03 Patient medically screened. rn 17:40 Differential diagnosis: contusion, fracture, sprain, strain. Data reviewed: vital rn signs, nurses notes, radiologic studies, plain films, and as a result, I will admit patient. Counseling: I had a detailed discussion with the patient and/or guardian regarding: the historical points, exam findings, and any diagnostic results supporting the discharge/admit diagnosis, radiology results, the need for outpatient follow up, to return to the emergency department if symptoms worsen or persist or if there are any questions or concerns that arise at home. Response to treatment: the patient's symptoms have mildly improved after treatment, and as a result, I will discharge patient. ED course: Per radiology, + elbow effusion without obvious fracture, will splint and have f/u with ortho for occult fracture and repeat films. . 03/31 16:04 Order name: XRAY Elbow LEFT 3 view rn 03/31 16:09 Order name: XRAY Shoulder LEFT 2 view rn 03/31 17:42 Order name: RAD; Complete Time: 17:46 EDMS 03/31 17:42 Order name: RAD; Complete Time: 17:46 EDMS 03/31 16:11 Order name: Sling; Complete Time: 19:35 rn 03/31 17:40 Order name: Splint - Elbow - Posterior; Complete Time: 19:35 rn Administered Medications: 17:18 Drug: [place] 10 mg-325 mg 1 tabs Route: PO; zb 17:30 Follow up: Response: No adverse reaction; Pain is decreased zb 17:18 Drug: Motrin 800 mg Route: PO; zb 17:30 Follow up: Response: No adverse reaction zb Disposition: 03/31/20 17:43 Discharged to Home. Impression: Effusion, left elbow, Occult fracture left elbow. - Condition is Stable. - Discharge Instructions: Cast or Splint Care, Adult, Elbow Contusion. - Prescriptions for Tylenol- Codeine #3 300-30 mg Oral Tablet - take 1 tablet by ORAL route every 6 hours As needed; 15 tablet. - Medication Reconciliation Form, Thank You Letter, Antibiotic Education, Prescription Opioid Use form. - Follow up: Daniel Evangelista MD; When: 1 week; Reason: Recheck today's complaints, Re-evaluation by your physician. - Problem is new. - Symptoms have improved. Signatures: Dispatcher [employer] Shefali Cabrera RN RN iw Nieto, Roman, MD MD rn Brown, Zipporah, RN RN zb Corrections: (The following items were deleted from the chart) 18:49 17:43 03/31/2020 17:43 Discharged to Home. Impression: Effusion, left elbow; Occult zb fracture left elbow. Condition is Stable. Forms are Medication Reconciliation Form, Thank You Letter, Antibiotic Education, Prescription Opioid Use. Follow up: Daniel Evangelista; When: 1 week; Reason: Recheck today's complaints, Re-evaluation by your physician. Problem is new. Symptoms have improved. rn
--- NOTE | 2020-03-31 17:44 | ER ---
Nurse's Notes [facility] Name: Levar Godinez Age: 64 yrs Sex: Male : 1955 Arrival Date: 03/31/2020 Time: 15:55 Bed 15 Private MD: Kael Mobley R Diagnosis: Effusion, left elbow;Occult fracture left elbow Presentation: 03/31 16:00 Chief complaint: Patient states: tripped and fell into an edge of table, now has pian iw to left elbow, happened about an hour ago. Care prior to arrival: None. 16:00 Acuity: ADRIANA 4 iw 16:00 Method Of Arrival: Ambulatory iw 16:01 Coronavirus screen: At this time, the client does not indicate any symptoms associated iw with coronavirus-19. Coronavirus screen: Client denies travel out of the [place] in the last 14 days. Client indicates they have traveled out of the [place] in the last 14 days. At this time, unable to obtain information related to travel outside the [place] Ebola Screen: Patient negative for fever greater than or equal to 101.5 degrees Fahrenheit, and additional compatible Ebola Virus Disease symptoms Patient denies exposure to infectious person. Patient denies travel to an Ebola-affected area in the 21 days before illness onset. No symptoms or risks identified at this time. Initial Sepsis Screen: Does the patient meet any 2 criteria? No. Patient's initial sepsis screen is negative. Does the patient have a suspected source of infection? No. Patient's initial sepsis screen is negative. Risk Assessment: Do you want to hurt yourself or someone else? Patient reports no desire to harm self or others. Onset of symptoms was March 31, 2020. Historical: - Allergies: 16:02 No Known Allergies; iw - Home Meds: 16:02 lisinopril 40 mg Oral tab 1 tab once daily [Active]; Hydrocodone-Acetaminophen Oral iw [Active]; - PMHx: 16:02 Hypertension; Back pain; iw - PSHx: 16:02 bilateral knee scopes; right hip replacement; Appendectomy; L hip replacement; iw - Immunization history:: Adult Immunizations up to date. - Social history:: Smoking status: Patient denies any tobacco usage or history of. - Family history:: not pertinent. - Hospitalizations: : No recent hospitalization is reported. Screenin:30 Abuse screen: Denies threats or abuse. Denies injuries from another. Nutritional zb screening: No deficits noted. Tuberculosis screening: No symptoms or risk factors identified. Fall Risk None identified. Assessment: 16:30 General: Appears in no apparent distress. uncomfortable, Behavior is calm, cooperative, zb appropriate for age. Pain: Complains of pain in left elbow, left shoulder Pain does not radiate. Pain currently is 8 out of 10 on a pain scale. Quality of pain is described as sharp, stabbing, Alleviated by cold application, Aggravated by increased activity, repositioning, weight bearing. Neuro: Level of Consciousness is awake, alert, obeys commands, Oriented to person, place, time, situation. Cardiovascular: Capillary refill < 3 seconds in bilateral fingers Patient's skin is warm and dry. Respiratory: Airway is patent Respiratory effort is even, unlabored, Respiratory pattern is regular, symmetrical. GI: Abdomen is round non-distended, Bowel sounds present X 4 quads. : No signs and/or symptoms were reported regarding the genitourinary system. EENT: No signs and/or symptoms were reported regarding the EENT system. Derm: No signs and/or symptoms reported regarding the dermatologic system. Skin is intact, is healthy with good turgor, Skin is normal. Musculoskeletal: Circulation, motion, and sensation intact. Capillary refill Range of motion: limited in left arm Swelling present in left elbow. 17:30 Reassessment: Patient appears in no apparent distress at this time. Patient and/or zb family updated on plan of care and expected duration. Pain level reassessed. Patient is alert, oriented x 3, equal unlabored respirations, skin warm/dry/pink. 18:30 Reassessment: Patient appears in no apparent distress at this time. Patient and/or zb family updated on plan of care and expected duration. Pain level reassessed. Patient is alert, oriented x 3, equal unlabored respirations, skin warm/dry/pink. arm splinted, sling on. Vital Signs: 16:03 BP 122 / 101; Pulse 84; Resp 18 S; Temp 98.0; Pulse Ox 98% on R/A; Weight 122.47 kg; iw Height 6 ft. 0 in. (182.88 cm); Pain 8/10; 16:03 Body Mass Index 36.62 (122.47 kg, 182.88 cm) ED Course: 15:55 Patient arrived in ED. ag5 15:55 Kael Mobley MD is Private Physician. ag5 16:01 Triage completed. iw 16:03 Romie Oliver MD is Attending Physician. rn 16:13 Brunilda Mao RN is Primary Nurse. zb 16:30 Patient has correct armband on for positive identification. Fall risk band placed. zb Placed in gown. Call light in reach. Side rails up X 1. Pulse ox on. NIBP on. Door closed. Noise minimized. 16:30 Arm band placed on right wrist. zb 17:43 Daniel Evangelista MD is Referral Physician. rn 18:25 Orthoglass splint: posterior long arm splint applied to the left arm. dh4 18:30 Patient did not have IV access during this emergency room visit. zb 18:30 No provider procedures requiring assistance completed. zb Administered Medications: 17:18 Drug: [place] 10 mg-325 mg 1 tabs Route: PO; zb 17:30 Follow up: Response: No adverse reaction; Pain is decreased zb 17:18 Drug: Motrin 800 mg Route: PO; zb 17:30 Follow up: Response: No adverse reaction zb Outcome: 17:43 Discharge ordered by MD. rn 18:30 Discharged to home ambulatory. zb 18:30 Condition: stable 18:30 Discharge instructions given to patient, Instructed on discharge instructions, follow up and referral plans. medication usage, Demonstrated understanding of instructions, follow-up care, medications, Prescriptions given X 1. 18:49 Patient left the ED. zb Signatures: Shefali Jackson RN RN Romie Oliver MD MD rn Gaskin, Ajare [facility] Feliberto Quevedo [facility] Brunilda Mao RN RN zb Corrections: (The following items were deleted from the chart) 16:07 16:03 Resp 18bpm; Spontaneous; Temp 98.0F; 122.47 kg; Height 6 ft. 0 in.; BMI: 36.6; iw Pain 8/10; iw
[2020-04-02 01:20] VITALS: BP 122/101; TEMP 98; O2SAT 98
== END 2020-03-31 18:49 | disposition home or self-care (01) ==
LOC: ER 15:53
PROC: 2W39X1Z Immobilization of Left Upper Extremity using Splint (ICD-10-PCS; principal; 2020-03-31)
DX: S42.402A Unspecified fracture of lower end of left humerus, initial encounter for closed fracture (principal); W19.XXXA Unspecified fall, initial encounter; Y93.9 Activity, unspecified; Y92.9 Unspecified place or not applicable; I10 Essential (primary) hypertension
CPT/HCPCS: 99284

== ENCOUNTER 2020-11-25 11:22 | Emergency (ER) | payer OTHER ==
--- OUTSIDE RECORDS SUMMARY | 2020-11-25 11:26 | XMS REPORT | Continuity of Care Document ---
:1955 Author Organization [facility] t Address [address] [place] [address] Care Team Providers Name Role Phone Asked, Pcp Primary Care Physician Unavailable Anthony Chang MD Attending Clinician Lab, Fam Pob I Attending Clinician Unavailable Pob, Lab Main Attending Clinician Unavailable Pob1, Care Clinic Attending Clinician Unavailable Doctor Unassigned, Name Attending Clinician Unavailable Hiram Evangelista MD Attending Clinician Hiram Evangelista MD Admitting Clinician Payers Payer Name Policy Type Policy Effective Date Expiration Date Sour ce Number MEDICAREMEDICARE PART [id number] [facility] AND 00:00:00 [facility] [id number] 2009 [place] [place] [facility] [place] Problems This patient has no known problems. Allergies, Adverse Reactions, Alerts This patient has no known allergies or adverse reactions. Social History Social Habit Start Date Stop Date Quantity Comments Source Sex Assigned At [address] [facility] 00:00:00 00:00:00 Smoking Status Start Date Stop Date Source Unknown if ever smoked [facility] Medications This patient has no known medications. Procedures Procedure Date / Time Performed Performing Clinician Rafael e MRI LUMBAR SPINE WO 2020-03-11 17:44:33 Alex Chang [facility] CONTRAST Plan of Care Planned Activity Planned Date Details Comments Source Future Scheduled Test COVID-19 VACCINE (1) [facility] [code = COVID-19 VACCINE (1)] Future Scheduled Test Hepatitis C screening [facility] (procedure) [code = 501739031] Future Scheduled Test COLONOSCOPY SCREENING [facility] [code = COLONOSCOPY SCREENING] Future Scheduled Test SHINGLES VACCINES (#1) [facility] [code = SHINGLES VACCINES (#1)] Future Scheduled Test INFLUENZA VACCINE [code [facility] = INFLUENZA VACCINE] Encounters Start End Encounter Admission Attending Care Care Encounter Source Date/Time Date/Time Type Type Clinicians Facility Department ID 2020-03-17 2020-03-17 Transcribe Alex Chang 1.2.840.1 [id number] [facility] 00:00:00 00:00:[address]1.[address] 3.430.2.7 Hospit a .3.299441 l .8 2020-03-11 2020-03-11 [facility] Alex Chang 1.2.840.1 [id number] [facility] 08:25:32 23:59:00 Encounter Jungradhak 28069.1.[address] 3.430.2.7 Hospit a .3.802734 l .8 2020-03-11 2020-03-11 [facility] ALEX CHANG [facility] [id number] [place] 00:00:00 00:00:[address] 2020-03-11 2020-03-11 Travel 1.2.840.1 1.2.277.575 [id number] [facility] 00:00:00 00:00:[address] 3.430.2.7 0.2.7.3.698 Ho spita .3.851805 084.8 l .8 2020-02-15 2020-02-15 Travel 1.2.840.1 1.2.999.295 [id number] [facility] 00:00:00 00:00:[address] 3.430.2.7 0.2.7.3.698 Ho spita .3.208276 084.8 l .8 2020-02-15 2020-02-15 Transcribe Alex Chang 1.2.840.1 [id number] [facility] 00:00:00 00:00:00 Orders Anthony 35802.1.[address] 3.430.2.7 Hospit a .3.280599 l .8 2019 2019 Laboratory Lab, [facility] 1.2.840.114 [id number] 07:32:33 07:52:33 Only Fam Pob Health 350.1.13.10 [place] 4.2.7.2.686 Professio [phone] [place] [address] [address] 2019-08-27 2019-08-27 Supervisor Polishing Iliana, [facility] 1.2.840.114 [id number] 15:41:32 15:56:32 Visit Lab Main [place] 350.1.13.10 [place] 4.2.7.2.686 Professio [id number] [address] 2019-08-27 2019-08-27 Urgent Pob1, Acute [facility] 1.2.840.114 [id number] 14:26:36 14:46:36 [facility] 350.1.13.10 [place] 4.2.7.2.686 Professio [phone] [place] [address] [address] 2019-08-27 2019-08-27 Orders Doctor JOHNSON 1.2.840.114 [id number] 00:00:00 00:00:00 Only Unassigned, [place] 350.1.13.10 [place] [facility] 4.2.7.2.686 [id number] 009 2019-05-16 2019-05-17 [facility] 1.2.840.114 [id number] 06:00:00 14:39:00 Encounter Daniel Palmer 350.1.13.10 [place] 4.2.7.2.686 [place] [id number] [id number] 2019-05-16 2019-05-16 Orders Doctor JOHNSON 1.2.840.114 [id number] 00:00:00 00:00:00 Only Unassigned, [place] 350.1.13.10 [place] [facility] 4.2.7.2.686 [id number] 009 2019-05-14 2019-05-14 Orders Doctor ALEX 1.2.840.114 [id number] 00:00:00 00:00:00 Only Unassigned, [place] 350.1.13.10 [place] [facility] 4.2.7.2.686 [id number] [id number] Results Test Description Test Time Test Comments Results Result Sourc e Comments MRI Lumbar Spine EXAMINATION: MRI Ut thodist Contrast 1 LUMBAR SPINE [facility] 18:44:42 CONTRAST CLINICAL HISTORY: M48.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 FINDINGS: There are multiple Schmorl's nodes. I do not see definite evidence of acute endplate fracture or upper sacral fracture. There are degenerative changes of the sacroiliac joints. The distal cord ends at the T12-L1 level and is unremarkable. There is decreased T2 signal intensity in multiple lumbar discs. L5-S1: There is greater posterior [...] nodes. L4-5: There is greater posterior and left disc [...] nerve. L3-4: There is greater posterior disc space narrowing. There is dorsal spondylosis with bulge and mass effect on the nerve roots in the subarachnoid space. There is posterior epidural fat. There is moderate to severe narrowing of the subarachnoid space. There are facet hypertrophic changes with severe left and moderate right foraminal stenosis. L2-3: There is severe right and posterior disc [...] with severe right foramen stenosis. There is [id number] anterior inferior left foramen stenosis. L1-2: There is greater posterior disc space narrowing. There is bulge flattening the anterior subarachnoid space. There are facet hypertrophic changes and posterior epidural fat. There is mild narrowing in the AP dimension of the central subarachnoid space and mild foramen stenosis. T11-12: There is dorsal spondylosis indenting the anterior subarachnoid space. The study was not performed for proper imaging of the soft tissue structures in the abdomen and pelvis. There is partial visualization of a large right kidney cyst. IMPRESSION: Degenerative changes. There is prominent foraminal stenosis on the left at L4-5 and L3-4. There is prominent right foraminal stenosis at L5-S1 and L2-3 and to a lesser extent at L3-4. Extra foraminal spondylosis and protrusions at some of the levels extending through the nerves. Narrowing of the subarachnoid space more prominent at L3-4 and L2-3. [facility]-[id number] Interface, Radiology Results - 03/11/2020 12:47 PM CST EXAMINATION: MRI LUMBAR SPINE WO CONTRASTCLINICAL HISTORY: M48.062 [...] with severe right foramen stenosis. There is [id number] anterior inferior left foramen stenosis.L1-2: There is [...] subarachnoid space more prominent at L3-4 and L2-3.[facility]-[id number]
[2020-11-25 12:14] LABS: RBC Red Blood Cell Count 4.46 M/uL (4.33-5.43)
[2020-11-25 12:15] LABS: Absolute Lymphocytes (CBC) 1.2 K/uL (0.7-4.9); Basophils % 0.5 % (0-1.3); MPV 7.5 fL (7.6-11.3)
[2020-11-25] MEDS ORDERED: Ringers Lactate 1,000 ML IV ONE (12:24)
[2020-11-25 12:47] LABS: Potassium 4.1 mmol/L (3.5-5.1)
[2020-11-25] MEDS ORDERED: ASCORBIC ACID 500 MG TABLET ONE (13:05)
--- NOTE | 2020-11-25 13:34 | EDPHYS ---
Physician Documentation [facility] Name: Levar Godinez Age: 65 yrs Sex: Male : 1955 Arrival Date: 11/25/2020 Time: 11:38 Bed 17 Private MD: ED Physician Yumiko Bowman HPI: 11/25 13:22 This 65 yrs old Male presents to ER via EMS with complaints of Heat Exposure. jr8 13:22 Onset: The symptoms/episode began/occurred acutely, today. Associated signs and jr8 symptoms: Pertinent positives: Near syncope. The patient has not experienced similar symptoms in the past. The patient has not recently seen a physician. This is a 65-year-old male patient that presented to the emergency room via EMS after sustaining what appears to be a heat exposure. 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 Patient was evaluated by EMS and was actively cooled with cool water and ice packs. Patient stated that he is feeling much better at this time upon arrival to emergency room.. Historical: - Allergies: 11:39 No Known Allergies; ll1 - PMHx: 11:39 Back pain; Hypertension; ll1 - Immunization history:: Adult Immunizations up to date. - Social history:: Smoking status: Patient denies any tobacco usage or history of. ROS: 13:22 Eyes: Negative for injury, pain, redness, and discharge, ENT: Negative for injury, jr8 pain, and discharge, Neck: Negative for injury, pain, and swelling, Cardiovascular: Negative for chest pain, palpitations, and edema, Respiratory: Negative for shortness of breath, cough, wheezing, and pleuritic chest pain, Abdomen/GI: Negative for abdominal pain, nausea, vomiting, diarrhea, and constipation, Back: Negative for injury and pain, MS/Extremity: Negative for injury and deformity, Skin: Negative for injury, rash, and discoloration. 13:22 Neuro: Positive for dizziness, near syncope. Exam: 13:22 Eyes: Pupils equal round and reactive to light, extra-ocular motions intact. Lids and jr8 lashes normal. Conjunctiva and sclera are non-icteric and not injected. Cornea within normal limits. Periorbital areas with no swelling, redness, or edema. ENT: Nares patent. No nasal discharge, no septal abnormalities noted. Tympanic membranes are normal and external auditory canals are clear. Oropharynx with no redness, swelling, or masses, exudates, or evidence of obstruction, uvula midline. Mucous membranes moist. Cardiovascular: Regular rate and rhythm with a normal S1 and S2. No gallops, murmurs, or rubs. Normal PMI, no JVD. No pulse deficits. Respiratory: Lungs have equal breath sounds bilaterally, clear to auscultation and percussion. No rales, rhonchi or wheezes noted. No increased work of breathing, no retractions or nasal flaring. Abdomen/GI: Soft, non-tender, with normal bowel sounds. No distension or tympany. No guarding or rebound. No evidence of tenderness throughout. Back: No spinal tenderness. No costovertebral tenderness. Full range of motion. Skin: Skin cool and dry. Normal-appearing color. MS/ Extremity: Pulses equal, no cyanosis. Neurovascular intact. Full, normal range of motion. Neuro: Awake and alert, GCS 15, oriented to person, place, time, and situation. Cranial nerves II-XII grossly intact. Motor strength 5/5 in all extremities. Sensory grossly intact. Vital Signs: 11:48 BP 117 / 100; Pulse 88; Resp 17; Temp 98.6; Pulse Ox 96% on R/A; Pain 0/10; ll1 13:43 BP 135 / 90 LA Supine (auto/reg); Pulse 76; Resp 15; Pulse Ox 100% ; dh4 13:43 BP 143 / 89 LA Sitting (auto/reg); Pulse 82; Resp 16; Pulse Ox 100% ; dh4 13:43 BP 137 / 89 LA Standing (auto/reg); Pulse 86; Resp 16; Pulse Ox 99% ; dh4 MDM: 11:58 Patient medically screened. jr8 13:32 Data reviewed: vital signs, nurses notes, lab test result(s), EKG. Data interpreted: jr8 Pulse oximetry: on room air is 96 %. Interpretation: normal. Counseling: I had a detailed discussion with the patient and/or guardian regarding: the historical points, exam findings, and any diagnostic results supporting the discharge/admit diagnosis, lab results, the need for outpatient follow up, a family practitioner, to return to the emergency department if symptoms worsen or persist or if there are any questions or concerns that arise at home. Response to treatment: the patient's symptoms have markedly improved after treatment, patient is well hydrated. ED course: Patient feeling markedly better. Patient with normal skin color and temperature. No dizziness or near syncope at this time. Patient able to ambulate without any recurrent symptoms. Blood pressure without any orthostatic changes. Otherwise hemodynamically stable. Explained to patient that he needs to be out of the heat for at least the next 48 to 72 hours and to continue to heavily hydrate at home. If he were to experience similar symptoms to come back immediately for further evaluation. Patient good with this plan and will follow up.. 11/25 11:58 Order name: CBC with Diff; Complete Time: 12:38 jr8 11/25 11:58 Order name: Basic Metabolic Panel; Complete Time: 13:21 jr8 11/25 11:58 Order name: IV; Complete Time: 11:59 jr8 11/25 11:58 Order name: CPK; Complete Time: 13:21 jr8 Administered Medications: 12:10 Drug: Ringers - Lactated Ringers Solution 1000 ml Route: IV; Rate: bolus; Site: right iw antecubital; 13:45 Drug: Tylenol 1000 mg Route: PO; hb Disposition: 18:56 Co-signature as Attending Physician, Yumiko Bowman I agree with the assessment and plan sp3 of care. Disposition Summary: 11/25/20 13:34 Discharge Ordered Location: Home jr8 Problem: new jr8 Symptoms: have improved jr8 Condition: Stable jr8 Diagnosis - Dehydration jr8 - Heat exhaustion, unspecified jr8 Followup: jr8 - With: Private Physician - When: 2 - 3 days - Reason: Recheck today's complaints, Continuance of care, Re-evaluation by your physician Discharge Instructions: - Discharge Summary Sheet jr8 - Dehydration, Adult jr8 - Heat Exhaustion jr8 Forms: - Medication Reconciliation Form jr8 - Thank You Letter jr8 - Antibiotic Education jr8 - Prescription Opioid Use jr8 Signatures: Dispatcher [employer] Shefali Cabrera RN RN iw Roszak, Josh, PA PA jr8 Kristen Hurley RN RN Atilio Larsen RN RN Yumiko Taylor sp3
--- NOTE | 2020-11-25 13:34 | ER ---
Nurse's Notes [facility] Name: Levar Godinez Age: 65 yrs Sex: Male : 1955 Arrival Date: 11/25/2020 Time: 11:38 Bed 17 Private MD: Diagnosis: Dehydration;Heat exhaustion, unspecified Presentation: 11/25 11:39 Coronavirus screen: Client denies travel out of the [place] in the last 14 days. Ebola ll1 Screen: Patient denies travel to an Ebola-affected area in the 21 days before illness onset. No symptoms or risks identified at this time. Risk Assessment: Do you want to hurt yourself or someone else? Patient reports no desire to harm self or others. Onset of symptoms was November 25, 2020. 11:39 Method Of Arrival: EMS: [facility] ll1 11:39 Acuity: ADRIANA 3 ll1 11:49 Chief complaint: Patient states: Cleaning out a storage room and got over heated. Near ll1 syncope event. Feels better now. Initial Sepsis Screen: Does the patient meet any 2 criteria? No. Patient's initial sepsis screen is negative. Does the patient have a suspected source of infection? No. Patient's initial sepsis screen is negative. Historical: - Allergies: 11:39 No Known Allergies; ll1 - PMHx: 11:39 Back pain; Hypertension; ll1 - Immunization history:: Adult Immunizations up to date. - Social history:: Smoking status: Patient denies any tobacco usage or history of. Screenin:49 Abuse screen: Denies threats or abuse. Nutritional screening: No deficits noted. ll1 Tuberculosis screening: No symptoms or risk factors identified. Vital Signs: 11:48 BP 117 / 100; Pulse 88; Resp 17; Temp 98.6; Pulse Ox 96% on R/A; Pain 0/10; ll1 13:43 BP 135 / 90 LA Supine (auto/reg); Pulse 76; Resp 15; Pulse Ox 100% ; dh4 13:43 BP 143 / 89 LA Sitting (auto/reg); Pulse 82; Resp 16; Pulse Ox 100% ; dh4 13:43 BP 137 / 89 LA Standing (auto/reg); Pulse 86; Resp 16; Pulse Ox 99% ; dh4 ED Course: 11:38 Patient arrived in ED. ll1 11:38 Arm band placed on Patient placed in an exam room, on a stretcher. ll1 11:39 Triage completed. ll1 11:50 Patient has correct armband on for positive identification. Bed in low position. Call ll1 light in reach. Side rails up X2. Pulse ox on. NIBP on. 11:58 Jeffy Millard PA is PHCP. jr8 11:58 Yumiko Bowman is Attending Physician. jr8 11:59 EKG completed in triage. Results shown to MD. 1 14:05 Kristen Hurley, RN is Primary Nurse. hb Administered Medications: 12:10 Drug: Ringers - Lactated Ringers Solution 1000 ml Route: IV; Rate: bolus; Site: right iw antecubital; 13:45 Drug: Tylenol 1000 mg Route: PO; hb Outcome: 13:34 Discharge ordered by MD. 8 14:05 Patient left the ED. hb Signatures: Shefali Jackson RN RN Jeffy Millard PA PA [facility] Kristen Hurley, RN RN [facility] Atilio Larsen RN RN [facility]
[2020-11-25] MEDS ORDERED: ACETAMINOPHEN 500 MG TAB ONE (13:58)
[2020-11-25 14:19] VITALS: TEMP 98.6
[2020-11-25 14:24] VITALS: BP 137/89; O2SAT 99
--- NOTE | 2020-11-26 16:29 | EKG ---
Test Date: 2020-11-25 Test Time: 11:55:36 Box Hinge And Lock Attacher: LML MEASUREMENT RESULTS: Intervals: Rate: 84 HI: 180 QRSD: 84 QT: 354 QTc: 418 [place]: P: 51 HI: 180 QRS: 9 T: 15 INTERPRETIVE STATEMENTS: Normal sinus rhythm Normal ECG Compared to ECG 11/21/2016 19:43:13 No significant changes Electronically Signed On 11-26-20 16:24:24 CDT by Juan F Lam
== END 2020-11-25 14:05 | disposition home or self-care (01) ==
LOC: ER 11:22
DX: E86.0 Dehydration (principal); T67.5XXA Heat exhaustion, unspecified, initial encounter; I10 Essential (primary) hypertension
CPT/HCPCS: 93005; 85025; 80048; 36415; 82550; 96374; 99283; J7120

== ENCOUNTER 2021-06-19 18:45 | Observation (INO) | payer OTHER ==
[2021-06-19 20:48] LABS: Absolute Lymphocytes (CBC) 2.2 K/uL (0.7-4.9); Hematocrit 39.9 % (39.6-49.0); Lymphocytes % 30.9 % (15.3-44.8); MPV 7.2 fL (7.6-11.3); RBC Red Blood Cell Count 4.37 M/uL (4.33-5.43)
[2021-06-19 21:09] LABS: ALT/SGPT 21 U/L (12-78); AST/SGOT 15 U/L (15-37); Albumin 3.7 g/dL (3.4-5.0); Alkaline Phosphatase 81 U/L (45-117); BUN Blood Urea Nitrogen 18 mg/dL (7-18); Bicarbonate 27 mmol/L (21-32); Bilirubin Total 0.3 mg/dL (0.2-1.0); Glucose Level 103 mg/dL (74-106); NT PRO-BNP 43 pg/mL (<125); Potassium 3.9 mmol/L (3.5-5.1); Protein, Total 7.6 g/dL (6.4-8.2); Sodium Level 137 mmol/L (136-145)
[2021-06-19 21:13] LABS: Bilirubin Direct < 0.1 mg/dL (0-0.2)
--- NOTE | 2021-06-19 21:19 | RAD REPORT ---
EXAM DESCRIPTION: Maurizio Single View06/19/2021 8:52 pm CLINICAL HISTORY: Chest pain COMPARISON: 2016 FINDINGS: The lungs appear clear of acute infiltrate. The heart is normal size IMPRESSION: No acute abnormalities displayed
[2021-06-19 21:25] LABS: SARS-COV-2 RT PCR NEGATIVE (NEGATIVE)
[2021-06-19] MEDS ORDERED: ONDANSETRON 4 MG/2 ML VIAL ONE (21:29)
[2021-06-19] MEDS ORDERED: MORPHINE 4 MG/ML SYR ONE (21:29)
--- NOTE | 2021-06-19 21:55 | ER ---
Nurse's Notes [facility] Name: Levar Godinez Age: 65 yrs Sex: Male : 1955 Arrival Date: 06/19/2021 Time: 18:46 Bed 27 Private MD: Diagnosis: Chest pain, unspecified Presentation: 06/19 19:03 Chief complaint: Patient states: chest pain started this morning, which then began ap3 radiating into his left arm with a tingling feeling. Patient then reports he got dizzy, and it was at that point his decided to bring him in for evaluation. Coronavirus screen: At this time, the client does not indicate any symptoms associated with coronavirus-19. Ebola Screen: No symptoms or risks identified at this time. Initial Sepsis Screen: Does the patient meet any 2 criteria? No. Patient's initial sepsis screen is negative. Does the patient have a suspected source of infection? No. Patient's initial sepsis screen is negative. Risk Assessment: Do you want to hurt yourself or someone else? Patient reports no desire to harm self or others. Onset of symptoms was June 19, 2021. 19:03 Method Of Arrival: Wheelchair ap3 19:03 Acuity: ADRIANA 3 ap3 Triage Assessment: 19:06 General: Appears in no apparent distress. Behavior is calm, cooperative, appropriate ap3 for age. Pain: Complains of pain in chest Pain radiates to left arm Pain began gradually, throughout today. Neuro: Level of Consciousness is awake, alert, obeys commands, Oriented to person, place, time, situation, Appropriate for age Speech is normal. Cardiovascular: Reports chest pain, Patient's skin is warm and dry. Respiratory: Airway is patent Respiratory effort is even, unlabored, Respiratory pattern is regular, symmetrical. Historical: - Allergies: 19:05 No Known Allergies; ap3 - Home Meds: 19:05 Hydrocodone-Acetaminophen Oral [Active]; lisinopril 40 mg Oral tab 1 tab once daily ap3 [Active]; trazodone Oral [Active]; - PMHx: 19:05 Back pain; Hypertension; ap3 - Immunization history:: Client reports having NOT received the Covid vaccine. Flu vaccine is not up to date. - Social history:: Smoking status: Patient reports use of chewing tobacco. - Family history:: not pertinent. - Hospitalizations: : No recent hospitalization is reported. Screenin:06 Abuse screen: Denies threats or abuse. Nutritional screening: No deficits noted. ap3 Tuberculosis screening: No symptoms or risk factors identified. 20:40 Fall Risk None identified. as6 Assessment: 20:38 General: Appears in no apparent distress. Behavior is calm, cooperative. Pain: as6 Complains of pain in left arm and chest Pain radiates to left arm Pain currently is 6 out of 10 on a pain scale. Quality of pain is described as dull. Neuro: Reports headache. Cardiovascular: Reports chest pain. Respiratory: Reports shortness of breath Airway is patent Trachea midline Respiratory effort is even, unlabored, Respiratory pattern is regular, symmetrical, Breath sounds are clear bilaterally. 21:28 General: is agitated at the bedside " I am about to get some tylenol out of the tw5 truck for him. He needs some pain medication." Patient was reassured that pain medication is on the way. It will be waiting for him when he returns from the restroom.. 21:31 General: states " How does he have three nurses and he can still not get a tw5 Tylenol!" It was explained that morphine was ordered for his pain, she stated " FOR WHAT?" Patient stated morphine was fine.. Pain: Complains of pain in chest "I also have a headache." Pain currently is 10 out of 10 on a pain scale. Quality of pain is described as "feels like I have a vice or clamp on my chest.". 22:28 Reassessment: Patient states feeling better. Patient states symptoms have improved. tw5 Pain: Pain currently is 6 out of 10 on a pain scale. 06/20 02:00 Reassessment: Patient states feeling better. Patient states symptoms have improved. ke1 patient is sleeping. 03:00 Reassessment: No changes from previously documented assessment. ke1 06:01 Reassessment: No changes from previously documented assessment. ke1 Vital Signs: 06/19 19:03 BP 132 / 95; Pulse 78; Temp 98.7; Pulse Ox 100% ; Weight 122.47 kg; Height 6 ft. ap3 (182.88 cm); Pain 6/10; 20:38 BP 141 / 83; Pulse 69; Resp 10 S; Pulse Ox 100% on R/A; as6 21:31 BP 122 / 78; Pulse 72; Resp 16; Pulse Ox 100% on R/A; Pain 10/10; tw5 22:28 BP 139 / 94; Pulse 77; Resp 22; Pulse Ox 100% on R/A; tw5 22:28 Pain 6/10; tw5 03 01:41 Pulse 83; Resp 14; Pulse Ox 100% ; tw5 06/19 19:03 Body Mass Index 36.62 (122.47 kg, 182.88 cm) ap3 ED Course: 06/19 18:46 Patient arrived in ED. ds1 19:03 EKG done, by ED staff. ap3 19:05 Triage completed. ap3 19:07 Patient maintains SpO2 saturation greater than 95% on room air. ap3 19:07 Arm band placed on right wrist. ap3 20:15 Jonah Hardwick, JEFF is Primary Nurse. as6 20:22 Romie Oliver MD is Attending Physician. rn 20:38 Inserted saline lock: 18 gauge in right antecubital area, using aseptic technique. as6 Blood collected. 20:41 Placed in gown. Bed in low position. Call light in reach. Side rails up X 1. Adult w/ as6 patient. player development manager on. Pulse ox on. NIBP on. Warm blanket given. 20:43 CBC with Automated Diff Sent. as6 20:43 Basic Metabolic Panel Sent. as6 20:43 COVID-19/FLU A+B (Document "Date of Onset" if Symptomatic) Sent. as6 20:43 D-Dimer Sent. as6 20:43 Basic Metabolic Panel Sent. as6 20:43 CBC with Diff Sent. as6 20:43 LFT's Sent. as6 20:43 NT PRO-BNP Sent. as6 20:43 Troponin HS Sent. as6 20:52 XRAY Chest (1 view) In Process Unspecified. EDMS 21:27 walking to restroom. tw5 21:55 Javier Tse is Hospitalizing Provider. rn 06/20 01:41 No provider procedures requiring assistance completed. Patient admitted, IV remains in tw5 place. Administered Medications: 06/19 21:38 Drug: morphine 4 mg Route: IVP; Site: right antecubital; tw5 22:27 Follow up: Response: No adverse reaction tw5 22:27 Follow up: Response: No adverse reaction; Pain is decreased; RASS: Alert and Calm (0) tw 22:28 Follow up: Pain 6/10 Adult tw5 21:38 Drug: Zofran (Ondansetron) 4 mg Route: IVP; Site: right antecubital; 22:28 Follow up: Response: No adverse reaction tw5 22:27 Drug: Aspirin Chewable Tablet 324 mg Route: PO; tw5 06/20 01:41 Follow up: Response: No adverse reaction tw5 Outcome: 06/19 21:55 Decision to Hospitalize by Provider. rn 06/20 01:41 Admitted to ER Hold. Please see [facility] for further documentation. tw5 Condition: improved Instructed on the need for admit. 12:21 Patient left the ED. aa5 Signatures: Dispatcher [employer] EDMS Kareen Lara ds1 Romie Oliver MD MD rn Calderon, Audri, RN RN aa5 Cherry Jasmine RN RN ap3 Ju Lobo tw5 Jonah Hardwick RN RN as6 Jennifer Ledezma RN RN ke1 Corrections: (The following items were deleted from the chart) 06:00 05:59 Reassessment: Patient states feeling better. Patient states symptoms have ke1 improved. patient is sleeping. ke1
--- NOTE | 2021-06-19 21:55 | EDPHYS ---
Physician Documentation [facility] Name: Levar Godinez Age: 65 yrs Sex: Male : 1955 Arrival Date: 06/19/2021 Time: 18:46 Bed 27 Private MD: ED Physician Romie Oliver HPI: 06/19 21:55 This 65 yrs old Male presents to ER via Wheelchair with complaints of Chest Pain. rn 21:55 The patient or guardian reports chest pain that is located primarily in the substernal rn area. Onset: 5 day(s) ago. The pain radiates to the left arm. Associated signs and symptoms: Pertinent positives: shortness of breath, Pertinent negatives: abdominal pain, cough, diaphoresis, near syncope, palpitations. The chest pain is described as a heaviness, a pressure. Duration: The patient or guardian reports multiple episodes, that are intermittent. Modifying factors: The symptoms are alleviated by nothing. the symptoms are aggravated by nothing. Severity of pain: At its worst the pain was moderate in the emergency department the pain is unchanged. The patient has not experienced similar symptoms in the past. The patient has not recently seen a physician. REports 4-5 days of intermittent chest pressure, feels like "a clamp", radiates to left arm, + famhx of MA in his brother around same age and mother around same age. No trauma. Does not feel ill. No abd pain/vomiting.. Historical: - Allergies: 19:05 No Known Allergies; ap3 - Home Meds: 19:05 Hydrocodone-Acetaminophen Oral [Active]; lisinopril 40 mg Oral tab 1 tab once daily ap3 [Active]; trazodone Oral [Active]; - PMHx: 19:05 Back pain; Hypertension; ap3 - Immunization history:: Client reports having NOT received the Covid vaccine. Flu vaccine is not up to date. - Social history:: Smoking status: Patient reports use of chewing tobacco. - Family history:: not pertinent. - Hospitalizations: : No recent hospitalization is reported. ROS: 21:55 Constitutional: Negative for fever, chills, and weight loss, Eyes: Negative for injury, rn pain, redness, and discharge, Neck: Negative for injury, pain, and swelling, Cardiovascular: Negative for palpitations, and edema, Respiratory: Negative for cough, wheezing, and pleuritic chest pain, Abdomen/GI: Negative for abdominal pain, nausea, vomiting, diarrhea, and constipation, Back: Negative for injury and pain, MS/Extremity: Negative for injury and deformity, Skin: Negative for injury, rash, and discoloration, Neuro: Negative for headache, and seizure. Exam: 21:55 Constitutional: This is a well developed, well nourished patient who is awake, alert, rn and in no acute distress. Head/Face: Normocephalic, atraumatic. Eyes: Periorbital areas with no swelling, redness, or edema. ENT: No stridor Cardiovascular: Regular rate and rhythm. No pulse deficits. Respiratory: No increased work of breathing, no retractions or nasal flaring. Abdomen/GI: soft, non-tender Skin: Warm, dry, no cyanosis MS/ Extremity: Pulses equal, no cyanosis. Neurovascular intact. Full, normal range of motion. Equal circumference. Neuro: Awake and alert, GCS 15 Vital Signs: 19:03 BP 132 / 95; Pulse 78; Temp 98.7; Pulse Ox 100% ; Weight 122.47 kg; Height 6 ft. ap3 (182.88 cm); Pain 6/10; 20:38 BP 141 / 83; Pulse 69; Resp 10 S; Pulse Ox 100% on R/A; as6 21:31 BP 122 / 78; Pulse 72; Resp 16; Pulse Ox 100% on R/A; Pain 10/10; tw5 22:28 BP 139 / 94; Pulse 77; Resp 22; Pulse Ox 100% on R/A; tw5 22:28 Pain 6/10; tw5 06/20 01:41 Pulse 83; Resp 14; Pulse Ox 100% ; tw5 06/19 19:03 Body Mass Index 36.62 (122.47 kg, 182.88 cm) ap3 MDM: 06/19 20:22 Patient medically screened. rn 21:48 Differential diagnosis: acute myocardial infarction, acute pericarditis, coronary rn artery disease pneumothorax. 21:55 HEART Score: History: Highly Suspicious (2), ECG: Normal (0), Age: > 45 and < 65 years rn (1), Risk Factors: 1 or 2 risk factors (1), Troponin: < or = 1 x Normal Limit (0), Total Score = 4. The patient was given aspirin in the Emergency Department. Data reviewed: vital signs, nurses notes, lab test result(s), EKG, radiologic studies, plain films, and as a result, I will admit patient. Counseling: I had a detailed discussion with the patient and/or guardian regarding: the historical points, exam findings, and any diagnostic results supporting the discharge/admit diagnosis, lab results, radiology results, the need for further work-up and treatment in the hospital. Response to treatment: the patient's symptoms have markedly improved after treatment, and as a result, I will admit patient. Admission orders: after a detailed discussion of the patient's condition and case, the admit orders are written by me. 06/19 20:23 Order name: Basic Metabolic Panel 06/19 20:23 Order name: CBC with Diff 06/19 20:23 Order name: LFT's; Complete Time: 21: 06/19 20:23 Order name: NT PRO-BNP; Complete Time: 21: 06/19 20:23 Order name: Troponin HS; Complete Time: : 06/19 20:23 Order name: D-Dimer; Complete Time: 21: 06/19 20:23 Order name: COVID-19/FLU A+B (Document "Date of Onset" if Symptomatic); Complete Time: rn :06/19 20:23 Order name: Basic Metabolic Panel; Complete Time: 21: [facility] 06/19 20:23 Order name: CBC with Automated Diff; Complete Time: 21: [facility] 06/20 03:44 Order name: CBC with Automated Diff [facility] 06/20 04:01 Order name: Troponin High Sensitivity [facility] 06/20 04:11 Order name: Comprehensive Metabolic Panel [facility] 06/20 04:11 Order name: Creatine Phosphokinase [facility] 06/20 04:11 Order name: CKMB Creatine Kinase MB [facility] 06/19 20:23 Order name: XRAY Chest (1 view); Complete Time: 21:21 06/19 20:23 Order name: EKG; Complete Time: 20:24 06/19 20:23 Order name: Cardiac monitoring; Complete Time: 20:23 06/19 20:23 Order name: EKG - Nurse/Tech; Complete Time: 20:23 06/19 20:23 Order name: IV Saline Lock; Complete Time: 20:42 rn 06/19 20:23 Order name: Labs collected and sent; Complete Time: 20:42 rn 06/19 20:23 Order name: O2 Per Protocol; Complete Time: 20:23 rn 06/20 04:11 Order name: Lipid Profile [facility] 06/20 04:11 Order name: T4 Free [facility] 06/20 04:11 Order name: Thyroid Stimulating Hormone [facility] 06/20 09:43 Order name: Urinalysis [facility] 06/20 10:02 Order name: Troponin High Sensitivity [facility] 06/19 20:23 Order name: O2 Sat Monitoring; Complete Time: 20:23 rn Administered Medications: 21:38 Drug: morphine 4 mg Route: IVP; Site: right antecubital; tw5 22:27 Follow up: Response: No adverse reaction tw5 22:27 Follow up: Response: No adverse reaction; Pain is decreased; RASS: Alert and Calm (0) tw5 22:28 Follow up: Pain 6/10 Adult tw5 21:38 Drug: Zofran (Ondansetron) 4 mg Route: IVP; Site: right antecubital; tw5 22:28 Follow up: Response: No adverse reaction tw5 22:27 Drug: Aspirin Chewable Tablet 324 mg Route: PO; tw5 06/20 01:41 Follow up: Response: No adverse reaction tw5 Disposition Summary: 06/19/21 21:55 Hospitalization Ordered Hospitalization Status: Observation rn Provider: Javier Tse rn Condition: Stable rn Problem: new rn Symptoms: have improved rn Bed/Room Type: Standard rn Location: [facility] ER HOLD(06/19/21 21:57) Room Assignment: ERHOLD-(06/19/21 21:57) mw Diagnosis - Chest pain, unspecified rn Forms: - Medication Reconciliation Form rn - SBAR form rn Signatures: Dispatcher [employer] EDMS Falguni Thomas RN RN Romie Dodson MD MD rn Prokisch, Amanda RN RN Ju Stafford tw5 Corrections: (The following items were deleted from the chart) 06/19 21:25 21:23 Femur Right+RAD.RAD.BRZ ordered. EDLA EDLA 21:57 21:55 Telemetry/MedSurg (observation) rn josé miguel 21:57 21:55 rn mw
[2021-06-19] MEDS ORDERED: ASPIRIN 81 MG CHEWABLE TABLET ONE (22:27)
--- NOTE | 2021-06-19 22:36 | P.HP ---
Certification for Inpatient Patient admitted to: Observation With expected LOS: <2 Midnights Patient will require the following post-hospital care: None Practitioner: I am a practitioner with admitting privileges, knowledge of patient current condition, hospital course, and medical plan of care. Services: Services provided to patient in accordance with Admission requirements found in Title 42 Section 412.3 of the Code of Federal Regulations Patient History Date of Service: 06/19/21 Primary Care Provider: Dr. Mobley Reason for admission: Chest Pain History of Present Illness: Patient is a 65-year-old male with hypertension and chronic back pain who presented to the ED with 5-day history of intermittent chest pain. He states the pain is in the middle of his chest and feels like a pressure/squeezing sensation. He states it is associated with left arm tingling/numbness, shortness of breath, and dizziness. Patient states he has experienced symptoms like this before but not as severe. Patient's brother and mother both had MIs in the past. In the ED, patient's troponin was not elevated and his EKG showed NSR. Other labs unremarkable. 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 He does not think he has had an echo. He received morphine, Zofran and 324 mg of aspirin in the ED. ED provider wishes to admit for observation for ACS rule out with cardiology consulting. Allergies No Known Allergies Allergy (Unverified 05/13/11 19:21) Home medications list reviewed: Yes Home Medications: NK 05/13/11 - Past Medical/Surgical History Diabetic: No -: Hypertension -: Chronic back pain -: Bilateral hip replacements - Family History Mother -: Heart disease Brother -: Heart disease - Social History Smoking Status: Current every day smoker (Patient uses chewing tobacco on a daily basis) Alcohol use: Yes CD- Drugs: No Caffeine use: Yes Place of Residence: Home Review of Systems 10-point ROS is otherwise unremarkable Cardiovascular: Chest Pain, Light Headedness, As per HPI Physical Examination - Studies Laboratory Data (last 24 hrs) 06/19/21 20:37: WBC 7.10, Hgb 13.4 L, Hct 39.9, Plt Count 268 06/19/21 20:37: Sodium 137, Potassium 3.9, BUN 18, Creatinine 0.98, Glucose 103, Total Bilirubin 0.3, AST 15, ALT 21, Alkaline Phosphatase 81 Assessment and Plan - Problems (Diagnosis) (1) Chest pain Current Visit: Yes Status: Acute Qualifiers: Chest pain type: unspecified Qualified Code(s): R07.9 - Chest pain, unspecified (2) Hypertension Current Visit: Yes Status: Chronic Qualifiers: Hypertension type: primary hypertension Qualified Code(s): I10 - Essential (primary) hypertension (3) Chronic back pain Current Visit: Yes Status: Chronic Qualifiers: Back pain location: back pain in unspecified location Back pain laterality: unspecified Qualified Code(s): M54.9 - Dorsalgia, unspecified; G89.29 - Other chronic pain - Plan -Patient will be admitted for ACS rule out. His initial troponin was negative and his EKG showed NSR. Will repeat troponin every 6x2 and check other cardiac enzymes -324 of aspirin in the ED. Will give atorvastatin tonight. -Patient has chronic back pain and reports chest pain 6 out of 10. Will give morphine for now and transition to home [place]. -Zofran as needed nausea -Patient states he takes lisinopril for high blood pressure but did not have his full list of medications with him. plans to obtain -Patient had a pharmacologic stress test in 2019 that showed some PVCs but was otherwise within normal limits. Echo ordered. Cardiology consulted DVT PPx: Lovenox Code: Full Discharge Plan: Home Plan to discharge in: 24 Hours - Advance Directives Does patient have a Living Will: No Does patient have a Durable POA for Healthcare: No - Code Status/Comfort Care Code Status Assessed: Yes (Full) Critical Care: No Time Spent Managing Pts Care (In Minutes): 70
[2021-06-20] MEDS ORDERED: HYDROCODONE/APAP 10/325 TAB PO PRN (00:19)
[2021-06-20 01:37] VITALS: BMI 38.0
[2021-06-20] MEDS: MORPHINE 2 MG/ML SYR IV PRN ×2 (01:43→10:27)
[2021-06-20] MEDS ORDERED: MORPHINE 2 MG/ML SYR ONE ×2 (01:44→10:28)
[2021-06-20] MEDS ORDERED: ONDANSETRON 4 MG/2 ML VIAL IV PRN (03:00)
[2021-06-20 03:39] LABS: Absolute Lymphocytes (CBC) 2.4 K/uL (0.7-4.9); Hematocrit 39.6 % (39.6-49.0); Lymphocytes % 32.5 % (15.3-44.8); MPV 7.1 fL (7.6-11.3); RBC Red Blood Cell Count 4.32 M/uL (4.33-5.43)
[2021-06-20 04:02] LABS: Albumin 3.4 g/dL (3.4-5.0); Bilirubin Total 0.3 mg/dL (0.2-1.0); CKMB Creatine Kinase MB 4.6 ng/mL (1.0-3.6)
[2021-06-20 04:11] LABS: Thyroid Stimulating Hormone 7.09 uIU/mL (0.360-3.740)
[2021-06-20] MEDS ORDERED: HYDROCODONE/APAP 10/325 TAB ONE (04:45)
--- NOTE | 2021-06-20 08:09 | CON ---
Date of Consultation: 06/20/[address] Tse on 06/19/2021. I saw the patient on 06/20/2021. Reason For Consultation: Chest pain. History Of Present Illness: Mr. Godinez is a 65-year-old obese white male with history of hyperten calre, family history of heart disease, negative tobacco use, comes in with chest pain for a week that is pleuritic. It gets worse when he takes a deep breath. Denies any cough, fever or chills. Denie d any PND, orthopnea, pedal edema, palpitation, or syncope. His symptoms are nonexertional. He has already ruled out for an [place]. He had a negative stress test in 2019. Past Medical History: As stated above. Review of Systems: Negative. Social History: He is on disability because of chronic back pain. Family History: Positive for heart disease in his mother, brother, and father. Social History: He does not smoke. Medications: At home include, 1.Lisinopril. 2.Hydrocodone. 3.Trazodone. He stated Dr. Alaniz added other medicine for his blood pressure, but he could not remember which one i t was. Physical Examination: Vital Signs: He weighed 268 pounds. HEENT: Negative. Chest: His chest was clear. Cardiac: Regular rhythm and rate. No murmurs, gallops, or rubs. Abdomen: Obese, but benign. Extremities: Revealed no clubbing, cyanosis, or edema. Diagnostic Data: Included normal EKG, normal stress test in 2019, normal x-ray, normal troponin, nor mal BNP. Impression And Plan: Mr. Godinez is 65, has risk factors including hypertension, obesity, strong f amily history of heart disease. I think his pain at this point is pleuritic and I think he can go ho me and have an outpatient echocardiogram and an MPI at his convenience. I will discuss the case furt her with Dr. Tse. NB/MODL Voice ID: [id number] Report ID: [id number]
[2021-06-20] MEDS ORDERED: ENOXAPARIN 40 MG/0.4 ML SQ SCH (09:00)
[2021-06-20 09:32] VITALS: TEMP 96.9
[2021-06-20 09:42] LABS: Urine Appearance CLEAR (Clear); Urine Bilirubin NEGATIVE (Negative); Urine Blood NEGATIVE (Negative); Urine Color YELLOW (Yellow); Urine Glucose NEGATIVE (Negative); Urine Protein NEGATIVE (Negative); Urine Specific Gravity 1.015 (1.005-1.030); Urine Urobilinogen 0.2 mg/dL (0.2-1.0)
[2021-06-20 09:43] LABS: Urine Microscopic Reflex NO UMIC
[2021-06-20] MEDS ORDERED: ENOXAPARIN 40 MG/0.4 ML SQ ONE (10:15)
--- NOTE | 2021-06-20 11:47 | P.DS ---
Admission Date: 06/19/21 Discharge Date: 06/20/21 Primary Care Provider: Dr. Mobley Disposition: ROUTINE DISCHARGE Discharge Condition: FAIR Reason for Admission: Chest Pain - Problems (1) Chest pain Current Visit: Yes Status: Acute Qualifiers: Chest pain type: unspecified Qualified Code(s): R07.9 - Chest pain, unspecified (2) Chronic back pain Current Visit: Yes Status: Chronic Qualifiers: Back pain location: back pain in unspecified location Back pain laterality: unspecified Qualified Code(s): M54.9 - Dorsalgia, unspecified; G89.29 - Other chronic pain (3) Hypertension Current Visit: Yes Status: Chronic Qualifiers: Hypertension type: primary hypertension Qualified Code(s): I10 - Essential (primary) hypertension Brief History of Present Illness: Patient is a 65-year-old male with hypertension and chronic back pain who presented to the ED with 5-day history of intermittent chest pain. He described pain is in the middle of his chest and feels like a pressure/squeezing sensation, associated with left arm tingling/numbness, shortness of breath, and dizziness. Patient stated he has experienced symptoms like this before but not as severe. Patient's brother and mother both had MIs in the past. In the ED, patient's troponin was not elevated and his EKG showed NSR with no ischemic changes. Other labs unremarkable. He reported a negative nuclear stress test i n the past. He received morphine, Zofran and 324 mg of aspirin in the ED. patient was placed on observation. Hospital Course: Patient placed under observation on the medical floor. Troponin trended negative. ACS ruled out. patient was chest pain-free during the hospital stay. He was seen by cardiology discharge for outpatient work-up. Patient will follow with Dr. Lam next week for arrangement for nuclear stress test. Vital Signs/Physical Exam: Temp Pulse Resp BP Pulse Ox 96.9 F 61 20 100/72 100 06/20/21 08:00 06/20/21 08:00 06/20/21 10:27 06/20/21 08:00 06/20/21 10:27 General: Alert, In no apparent distress, Oriented x3 HEENT: Mucous membr. moist/pink Neck: Supple, JVD not distended Respiratory: Clear to auscultation bilaterally, Normal air movement Cardiovascular: No edema, Regular rate/rhythm, Normal S1 S2 Capillary refill: <2 Seconds Gastrointestinal: Soft and benign, Non-distended Musculoskeletal: No swelling Integumentary: No rashes Neurological: Normal strength at 5/5 x4 extr Laboratory Data at Discharge: WBC 7.30 K/uL (4.3-10.9) 06/20/21 03:29 Hgb 13.0 g/dL (13.6-17.9) L 06/20/21 03:29 Hct 39.6 % (39.6-49.0) 06/20/21 03:29 Plt Count 250 K/uL (152-406) 06/20/21 03:29 Sodium 138 mmol/L (136-145) 06/20/21 03:29 Potassium 4.0 mmol/L (3.5-5.1) 06/20/21 03:29 BUN 17 mg/dL (7-18) 06/20/21 03:29 Creatinine 0.88 mg/dL (0.55-1.3) 06/20/21 03:29 Glucose 122 mg/dL (74-106) H 06/20/21 03:29 Total Bilirubin 0.3 mg/dL (0.2-1.0) 06/20/21 03:29 AST 15 U/L (15-37) 06/20/21 03:29 ALT 20 U/L (12-78) 06/20/21 03:29 Alkaline Phosphatase 74 U/L (45-117) 06/20/21 03:29 Triglycerides 130 mg/dL (<150) 06/20/21 03:29 Cholesterol 148 mg/dL (<200) 06/20/21 03:29 HDL Cholesterol 39 mg/dL (40-60) L 06/20/21 03:29 Cholesterol/HDL Ratio 3.79 06/20/21 03:29 Home Medications: Aspirin [Aspirin EC] 81 mg PO DAILY #30 tablet.dr 06/20/21 Hydrocodone Bit/Acetaminophen [Hydrocodon-Acetaminophn 10-325] 1 tab PO SEECOM 06/20/21 LORazepam [Lorazepam] 1 tab PO BEDTIME 06/20/21 Lisinopril [Zestril] 1 tab PO DAILY 06/20/21 Tizanidine [Zanaflex*] 1 tab PO TID 06/20/21 New Medications: Aspirin [Aspirin EC] 81 mg PO DAILY #30 tablet. Diet: AHA Activity: Ad yazmin Followup: Juan F Lam MD [ACTIVE - CAN ADMIT] - 1-2 Days (Please call Dr. Lam's office at [phone] for arrangement for stress test.) Kael Mobley MD [Primary Care Provider] -
[2021-06-20 12:31] VITALS: BP 106/75
[2021-06-20 12:36] VITALS: O2SAT 100
[2021-06-20] MEDS ORDERED: ATORVASTATIN 40 MG TAB PO SCH (21:00)
--- NOTE | 2021-06-21 10:12 | EKG ---
Test Date: 2021-06-19 Test Time: 18:59:32 Inside Sales Manager: ALP MEASUREMENT RESULTS: Intervals: Rate: 69 IA: 178 QRSD: 86 QT: 366 QTc: 392 [place]: P: 45 IA: 178 QRS: 0 T: 40 INTERPRETIVE STATEMENTS: Normal sinus rhythm Normal ECG Compared to ECG 11/25/2020 11:55:36 No significant changes Electronically Signed On 06-21-21 10:11:39 CDT by Juan F Lam
== END 2021-06-20 20:00 | disposition home or self-care (01) ==
LOC: ER 18:45 → ERHOLD 22:35
PROVIDERS: ADMIT Internal Medicine; ATTEND Internal Medicine
DX: R07.9 Chest pain, unspecified (principal); M54.9 Dorsalgia, unspecified; G89.29 Other chronic pain; I10 Essential (primary) hypertension; E66.9 Obesity, unspecified; Z68.36 Body mass index [BMI] 36.0-36.9, adult; F17.220 Nicotine dependence, chewing tobacco, uncomplicated; Z20.822 Contact with and (suspected) exposure to COVID-19; Z96.643 Presence of artificial hip joint, bilateral; Z82.49 Family history of ischemic heart disease and other diseases of the circulatory system
CPT/HCPCS: 93005; 85025 ×2; 80048; 36415; 82550; 80061; 85379; 80076; 84443; 81003; 84484 ×3; 82553; 84439; 80053; 83880; 0240U; 71045; 96375; 96374; 99285; J1650; J2270 ×2; J2405

== ENCOUNTER 2021-10-14 08:11 | Emergency (ER) | payer OTHER ==
[2021-10-14] MEDS ORDERED: ASPIRIN 325 MG TAB ONE (08:46)
[2021-10-14] MEDS ORDERED: NA CHLORIDE 0.9% 1,000 ML ONE (08:47)
[2021-10-14] MEDS ORDERED: LEVALBUTEROL 1.25 MG/3 ML NEB ONE ×2 (08:47→08:52)
[2021-10-14 08:52] LABS: Absolute Lymphocytes (CBC) 0.7 K/uL (0.7-4.9); Hematocrit 42.3 % (39.6-49.0); Lymphocytes % 11.4 % (15.3-44.8); MCV 88.9 fL (80-100); MPV 7.4 fL (7.6-11.3); RBC Red Blood Cell Count 4.76 M/uL (4.33-5.43)
[2021-10-14 08:59] LABS: Protime INR 1.2
--- NOTE | 2021-10-14 09:34 | RAD REPORT ---
EXAM DESCRIPTION: Maurizio Hannah And Ashley (2 Views)10/14/2021 9:20 am CLINICAL HISTORY: Cough COMPARISON: June 2021 FINDINGS: The lungs appear clear of acute infiltrate. The heart is normal size IMPRESSION: No acute abnormalities displayed
[2021-10-14 10:05] LABS: Albumin 3.7 g/dL (3.4-5.0); Bilirubin Total 0.3 mg/dL (0.2-1.0); Potassium 4.3 mmol/L (3.5-5.1); Protein, Total 7.9 g/dL (6.4-8.2); Troponin High Sensitivity 6.7 pg/mL (<58.9)
--- NOTE | 2021-10-14 11:07 | ER ---
Nurse's Notes [facility] Name: Levar Godinez Age: 65 yrs Sex: Male : 1955 Arrival Date: 10/14/2021 Time: 08:12 Bed 5 Private MD: Diagnosis: Coronavirus infection, unspecified Presentation: 10/14 08:21 Chief complaint: Patient states: shortness of breath, cough and intermittent dizziness ss that began 2 days ago. Coronavirus screen: Client presents with at least one sign or symptom that may indicate coronavirus-19. Ebola Screen: Patient denies exposure to infectious person. Patient denies travel to an Ebola-affected area in the 21 days before illness onset. Initial Sepsis Screen: Does the patient meet any 2 criteria? No. Patient's initial sepsis screen is negative. Does the patient have a suspected source of infection? No. Patient's initial sepsis screen is negative. Risk Assessment: Do you want to hurt yourself or someone else? Patient reports no desire to harm self or others. Onset of symptoms was October 12, 2021. 08:21 Method Of Arrival: Ambulatory ss 08:21 Acuity: ADRIANA 3 ss Historical: - Allergies: 08:24 No Known Allergies; ss - PMHx: 08:24 Back pain; Hypertension; Anxiety; ss 08:25 TIA; aa5 - Immunization history:: Client reports having NOT received the Covid vaccine. - Social history:: Smoking status: Patient reports use of chewing tobacco. Screenin:30 Abuse screen: Denies threats or abuse. Nutritional screening: No deficits noted. aa5 Tuberculosis screening: No symptoms or risk factors identified. Fall Risk IV access (20 points). Total Morales Fall Scale indicates No Risk (0-24 pts). Assessment: 08:20 General: Appears uncomfortable, Behavior is calm, cooperative. Pain: Denies pain. aa5 Neuro: Level of Consciousness is awake, alert, obeys commands, Oriented to person, place, time, situation, Heavy Machinery Operator are equal bilaterally Moves all extremities. Speech is normal, Facial symmetry appears normal, Reports dizziness. Cardiovascular: Denies chest pain, Heart tones S1 S2 present Rhythm is sinus rhythm. Respiratory: Reports shortness of breath cough that is productive at times Airway is patent Respiratory effort is even, unlabored, Respiratory pattern is regular, symmetrical, Breath sounds are clear bilaterally. GI: Abdomen is round Bowel sounds present X 4 quads. Abd is soft and non tender X 4 quads. : No signs and/or symptoms were reported regarding the genitourinary system. EENT: No signs and/or symptoms were reported regarding the EENT system. Derm: Skin is pink, warm \T\ dry. Musculoskeletal: Range of motion: intact in all extremities. 08:32 Reassessment: Pt to radiology . aa5 09:10 Reassessment: Patient is alert, oriented x 3, equal unlabored respirations, skin aa5 warm/dry/pink. Patient states symptoms have improved. Reports SOB has improved. . 10:24 Reassessment: Hospitalist at bedside . aa5 Vital Signs: 08:21 BP 96 / 60; Pulse 81; Resp 18; Temp 99.3(O); Pulse Ox 95% on R/A; Weight 87.54 kg; ss Height 6 ft. 0 in. (182.88 cm); Pain 0/10; 09:00 BP 94 / 66; Pulse 98; Resp 18 S; Pulse Ox 98% on Nebulizer Mask; aa5 10:05 BP 105 / 73; Pulse 98; Resp 16 S; Pulse Ox 94% on R/A; aa5 08:21 Body Mass Index 26.18 (87.54 kg, 182.88 cm) ED Course: 08:12 Patient arrived in ED. rg4 08:14 Lala Alegria FNP [facility]. jh7 08:14 Tae Berkowitz MD is Attending Physician. jh7 08:20 Arm band placed on right wrist. aa5 08:20 Patient has correct armband on for positive identification. Placed in gown. Bed in low aa5 position. Call light in reach. Side rails up X2. Adult w/ patient. Client placed on continuous cardiac and pulse oximetry monitoring. NIBP monitoring applied. 08:24 Triage completed. ss 08:30 Initial lab(s) drawn, by me, sent to lab. Inserted saline lock: 18 gauge in right aa5 forearm, using aseptic technique. Blood collected. 08:40 Maribell Freeman, RN is Primary Nurse. aa5 08:50 COVID swab sent to lab. Flu and/or RSV swab sent to lab. aa5 09:22 Chest Pa And Lat (2 Views) XRAY In Process Unspecified. EDMS Administered Medications: 08:50 Drug: Aspirin 325 mg Route: PO; aa5 08:50 Drug: NS 0.9% 1000 ml Route: IV; Rate: 1 bolus; Site: right forearm; aa5 08:50 Drug: Xopenex (levalbuterol) (3) 1.25 mg Route: Inhalation; aa5 09:10 Follow up: Response: Marked relief of symptoms aa5 Outcome: 11:06 Discharge ordered by MD. barron 12:27 Patient left the ED. aa5 Signatures: Dispatcher [employer] EDMS Maribell Freeman, RN RN aa5 Freya Carroll RN RN Madeline Ernst 4 Lala Alegria FNP FNP 7 Corrections: (The following items were deleted from the chart) 08:44 08:24 Arm band placed on right wrist. [facility] 10:03 09:00 BP 94 / 66; Pulse 98bpm; Resp 18bpm; Spontaneous; Pulse Ox 95% RA; 5 5
--- NOTE | 2021-10-14 11:07 | EDPHYS ---
Physician Documentation [facility] Name: Levar Godinez Age: 65 yrs Sex: Male : 1955 Arrival Date: 10/14/2021 Time: 08:12 Bed 5 Private MD: ED Physician Tae Berkowitz HPI: 10/14 08:25 This 65 yrs old Male presents to ER via Ambulatory with complaints of Breathing jh7 Difficulty. 08:25 The patient has shortness of breath at rest. Onset: The symptoms/episode began/occurred jh7 yesterday, and became worse last night. Duration: The symptoms are continuous. 65-year-old male presents with shortness of breath, cough, lethargy, and subjective fever since yesterday. Initially he thought it was heat exhaustion because he had been working outside all day. The cough became persistent last night and he became persistently fatigued. Also complains of some chest pain last night. History of hypertension.. Historical: - Allergies: 08:24 No Known Allergies; ss - PMHx: 08:24 Back pain; Hypertension; Anxiety; ss 08:25 TIA; aa5 - Immunization history:: Client reports having NOT received the Covid vaccine. - Social history:: Smoking status: Patient reports use of chewing tobacco. ROS: 08:25 ENT: Negative for injury, pain, and discharge, Neck: Negative for injury, pain, and jh7 swelling, Abdomen/GI: Negative for abdominal pain, nausea, vomiting, diarrhea, and constipation, Back: Negative for injury and pain, Skin: Negative for injury, rash, and discoloration, Neuro: Negative for headache, weakness, numbness, tingling, and seizure. 08:25 Constitutional: Positive for body aches, fatigue, fever, malaise. 08:25 Cardiovascular: Positive for chest pain, orthopnea, Negative for edema, palpitations. 08:25 Respiratory: Positive for cough, orthopnea, shortness of breath, Negative for hemoptysis. 08:25 All other systems are negative. Exam: 08:25 ECG was reviewed by the Attending Physician. jh7 08:28 Eyes: Pupils equal round and reactive to light, extra-ocular motions intact. Lids and jh7 lashes normal. Conjunctiva and sclera are non-icteric and not injected. Cornea within normal limits. Periorbital areas with no swelling, redness, or edema. ENT: Nares patent. No nasal discharge, no septal abnormalities noted. Oropharynx with no redness, swelling, or masses, exudates, or evidence of obstruction, uvula midline. Mucous membranes moist. Cardiovascular: Regular rate and rhythm with a normal S1 and S2. No gallops, murmurs, or rubs. Normal PMI, no JVD. No pulse deficits. Abdomen/GI: Soft, non-tender, with normal bowel sounds. No distension or tympany. No guarding or rebound. No evidence of tenderness throughout. Back: No spinal tenderness. No costovertebral tenderness. Full range of motion. Skin: Warm, dry with normal turgor. Normal color with no rashes, no lesions, and no evidence of cellulitis. Neuro: Awake and alert, GCS 15, oriented to person, place, time, and situation. . Motor strength 5/5 in all extremities. Sensory grossly intact. Normal gait. 08:28 Constitutional: The patient appears alert, awake, restless. 08:28 Respiratory: mild respiratory distress is noted, Respirations: Breath sounds: are clear throughout, Respiratory rate: 20 Vital Signs: 08:21 BP 96 / 60; Pulse 81; Resp 18; Temp 99.3(O); Pulse Ox 95% on R/A; Weight 87.54 kg; ss Height 6 ft. 0 in. (182.88 cm); Pain 0/10; 09:00 BP 94 / 66; Pulse 98; Resp 18 S; Pulse Ox 98% on Nebulizer Mask; aa5 10:05 BP 105 / 73; Pulse 98; Resp 16 S; Pulse Ox 94% on R/A; aa5 08:21 Body Mass Index 26.18 (87.54 kg, 182.88 cm) ss MDM: 08:14 Patient medically screened. jh7 12:10 Differential diagnosis: Bronchitis Myocardial Infarction pneumonia, Pulmonary Embolism jh7 COVID. 12:10 The patient's pulmonary embolism risk score was calculated as follows: No Risks (0 [facility] Pts). Data reviewed: vital signs, nurses notes, lab test result(s), EKG, radiologic studies, plain films. Data interpreted: Pulse oximetry: is 97 %. Interpretation: normal. Test interpretation: by ED physician or midlevel provider: ECG, plain radiologic studies. Counseling: I had a detailed discussion with the patient and/or guardian regarding: the historical points, exam findings, and any diagnostic results supporting the discharge/admit diagnosis, to return to the emergency department if symptoms worsen or persist or if there are any questions or concerns that arise at home. Response to treatment: the patient's symptoms have markedly improved after treatment. ED course: Informed to the patient that he was positive for COVID, and there were no significant findings found on his other lab work. Discussed quarantine, symptom management, and signs and symptoms of when to return to the ER. The patient understood the plan of care. He remained stable throughout his ER visit.. 10/14 08:24 Order name: CBC with Diff; Complete Time: 09:22 [facility] 10/14 08:24 Order name: CMP; Complete Time: 10:18 [facility] 10/14 08:24 Order name: Lactate; Complete Time: : [facility] 10/14 08:24 Order name: Protime (+inr); Complete Time: : [facility] 10/14 08:24 Order name: Ptt, Activated; Complete Time: 09: [facility] 10/14 08:24 Order name: SARS-COV-2 RT PCR (Document "Date of Onset" if Symptomatic); Complete Time: [facility] 12:13 10/14 08:24 Order name: Chest Pa And Lat (2 Views) XRAY; Complete Time: 09:40 [facility] 10/14 08:24 Order name: Flu; Complete Time: 09:40 [facility] 10/14 08:24 Order name: Troponin High Sensitivity; Complete Time: 10:18 [facility] 10/14 08:24 Order name: BNP; Complete Time: 10:18 [facility] 10/14 08:24 Order name: Cardiac monitoring; Complete Time: 08:27 [facility] 10/14 08:24 Order name: EKG - Nurse/Tech; Complete Time: 08:27 [facility] 10/14 08:24 Order name: IV Saline Lock - Large Bore; Complete Time: 08:37 [facility] 10/14 08:24 Order name: Labs collected and sent; Complete Time: :37 [facility] 10/14 08:24 Order name: O2 Per Protocol; Complete Time: 08:27 [facility] 10/14 08:24 Order name: O2 Sat Monitoring; Complete Time: : [facility] EC:25 Rate is 78 beats/min. Rhythm is regular. QRS [place] is Normal. HI interval is normal. QRS jh7 interval is normal. QT interval is normal. No Q waves. T waves are Normal. No ST changes noted. Clinical impression: Normal ECG. Administered Medications: 08:50 Drug: Aspirin 325 mg Route: PO; aa 08:50 Drug: NS 0.9% 1000 ml Route: IV; Rate: 1 bolus; Site: right forearm; aa5 08:50 Drug: Xopenex (levalbuterol) (3) 1.25 mg Route: Inhalation; 5 09:10 Follow up: Response: Marked relief of symptoms 5 Disposition Summary: 10/14/21 11:06 Discharge Ordered Location: Home [facility] Problem: new [facility] Symptoms: have improved [facility] Condition: Stable [facility] Diagnosis - Coronavirus infection, unspecified [facility] Followup: [facility] - With: Private Physician - When: 2 - 3 days - Reason: Recheck today's complaints Discharge Instructions: - Discharge Summary Sheet [facility] - COVID-19 [facility] - COVID-19 Frequently Asked Questions [facility] - Things You Can Do to Manage Your COVID-19 Symptoms at Home - [place] [id number] Forms: - Medication Reconciliation Form [facility] - Thank You Letter [facility] Prescriptions: - Ventolin HFA 90 mcg/actuation Inhalation HFA aerosol inhaler - inhale 2 puff by INHALATION route every 4-6 hours As needed; 1 Inhaler; [facility] Refills: 0, Product Selection Permitted - Tessalon Perles 100 mg Oral Capsule - take 1 capsule by ORAL route every 8 hours As needed; 15 capsule; Refills: 0, [facility] Product Selection Permitted - Albuterol Sulfate 2.5 mg /3 mL (0.083 %) Inhalation Solution for Nebulization - inhale 1 unit by NEBULIZATION route every 8 hours As needed; 1 box; Refills: 0, [facility] Product Selection Permitted Signatures: Dispatcher [employer] Maribell Abdi RN RN aa5 Freya Carroll RN RN ss Hadash, Jennifer, LOG RAFT WORKER LOG RAFT WORKER [facility] Corrections: (The following items were deleted from the chart) 09:01 08:24 Accucheck ordered. [place] [id number]
[2021-10-14 12:32] VITALS: TEMP 99.3
[2021-10-14 12:37] VITALS: BP 105/73; O2SAT 94
--- NOTE | 2021-10-15 13:55 | EKG ---
Test Date: 2021-10-14 Test Time: 08:21:16 Slab Inspector: YUSEF MEASUREMENT RESULTS: Intervals: Rate: 78 RI: 154 QRSD: 80 QT: 346 QTc: 394 [place]: P: 37 RI: 154 QRS: -28 T: 21 INTERPRETIVE STATEMENTS: Normal sinus rhythm Normal ECG Compared to ECG 06/19/2021 18:59:32 No significant changes Electronically Signed On 10-15-21 13:51:47 CDT by Vlad Higgins
== END 2021-10-14 12:27 | disposition home or self-care (01) ==
LOC: ER 08:11
DX: U07.1 COVID-19 (principal); I10 Essential (primary) hypertension; F17.220 Nicotine dependence, chewing tobacco, uncomplicated; Z86.73 Personal history of transient ischemic attack (TIA), and cerebral infarction without residual deficits
CPT/HCPCS: 85025; 36415; 85610; 83605; 85730; 84484; 80053; 83880; 87804 ×2; 71046; U0003; J7030; 93005

== ENCOUNTER 2021-10-19 16:43 | Emergency (ER) | payer OTHER ==
[2021-10-19] MEDS ORDERED: NA CHLORIDE 0.9% 1,000 ML ONE ×2 (17:46→20:00)
[2021-10-19 17:53] LABS: Protime INR 1.05
[2021-10-19 17:56] LABS: Absolute Lymphocytes (CBC) 0.8 K/uL (0.7-4.9); Hematocrit 43.5 % (39.6-49.0); Lymphocytes % 18.8 % (15.3-44.8); MPV 8.1 fL (7.6-11.3); RBC Red Blood Cell Count 4.94 M/uL (4.33-5.43)
--- NOTE | 2021-10-19 18:00 | RAD REPORT ---
EXAM DESCRIPTION: RAD - Chest Single View - 10/19/2021 5:51 pm CLINICAL HISTORY: COVID COMPARISON: Chest 10/14/2021 TECHNIQUE: AP portable chest image was obtained 10/19/2021 5:51 pm . FINDINGS: Lung volumes are low. No peripheral mass consolidations seen. Interstitial pattern not sig nificantly different from comparison. Heart and vasculature are normal. No measurable pleural effusio n and no pneumothorax. No acute bony abnormality seen. No acute aortic findings suspected. IMPRESSION: Limited low volume exam with no acute cardiopulmonary process.
[2021-10-19 18:01] LABS: Potassium 4.2 mmol/L (3.5-5.1)
--- NOTE | 2021-10-19 19:23 | RAD REPORT ---
EXAM DESCRIPTION: CT - Chest For Pe Angio - 10/19/2021 7:08 pm CLINICAL HISTORY: COVID +, sob, eval for PE, syncope COMPARISON: No comparisons TECHNIQUE: Dynamically enhanced 3 mm thick images of the chest were obtained during administration o f approximately 150mL Isovue 370 IV contrast. Coronal and oblique MIP reconstruction images were gene rated and reviewed. Exam utilizes a protocol to evaluate the pulmonary arterial tree. All CT scans are performed using dose optimization technique as appropriate and may include automated exposure control or mA/KV adjustment according to patient size. FINDINGS: No pulmonary emboli are identified. The aorta as imaged shows no acute or suspicious finding. No pericardial thickening or effusion. No infiltrate or mass in the lung parenchyma. No pleural effusion or pleural thickening. No mediastinal or hilar suspicious masses. No chest wall masses or abnormal axillary lymphadenopathy. Thoracic spine degenerative changes are present. No acute bone finding. IMPRESSION: No pulmonary emboli identified. No other significant or suspicious findings.
--- NOTE | 2021-10-19 19:34 | ER ---
Nurse's Notes [facility] Name: Levar Godinez Age: 66 yrs Sex: Male : 1955 Arrival Date: 10/19/2021 Time: 17:00 Bed 4 Private MD: Diagnosis: Coronavirus infection, unspecified;SARS-associated coronavirus as the cause of diseases classified elsewhere;Other obesity;Essential (primary) hypertension;Dehydration;Syncope Near Presentation: 10/19 17:00 Chief complaint: EMS states: Dx with COVID last week. dizziness with loose stools the 6 last couple of days and syncope this afternoon. pt alert at this time c/o generalized weakness. Coronavirus screen: Client presents with at least one sign or symptom that may indicate coronavirus-19. Standard/surgical mask placed on the client. Client reports previous positive COVID test result. Date of collection: October 12, 2021. Ebola Screen: Patient negative for fever greater than or equal to 101.5 degrees Fahrenheit, and additional compatible Ebola Virus Disease symptoms Patient denies exposure to infectious person. Patient denies travel to an Ebola-affected area in the 21 days before illness onset. Initial Sepsis Screen: Does the patient meet any 2 criteria? No. Patient's initial sepsis screen is negative. Does the patient have a suspected source of infection? No. Patient's initial sepsis screen is negative. Risk Assessment: Do you want to hurt yourself or someone else? Patient reports no desire to harm self or others. Onset of symptoms was October 19, 2021. 17:00 Method Of Arrival: EMS: [place] [address] 17:00 Acuity: ADRIANA 3 6 Triage Assessment: 16:50 General: Appears in no apparent distress. Behavior is calm, cooperative. [facility] 16:50 Pain: Denies pain. Neuro: No deficits noted. Level of Consciousness is awake, alert, 6 obeys commands, Oriented to person, place, time, Shake Cutter are equal bilaterally Moves all extremities. Gait is steady, Speech is normal, Facial symmetry appears normal, Pupils are PERRLA, Intact Reports weakness. Respiratory: No deficits noted. GI: Reports diarrhea. Historical: - Allergies: 19:28 No Known Allergies; jl7 - PMHx: 17:04 Anxiety; Back pain; Hypertension; TIA; [facility] - Immunization history:: Adult Immunizations up to date. - Social history:: Smoking status: Patient reports the use of cigarette tobacco products. - Family history:: not pertinent. - Hospitalizations: : No recent hospitalization is reported. Screenin:06 Abuse screen: Denies threats or abuse. Denies injuries from another. Nutritional [facility] screening: No deficits noted. Tuberculosis screening: No symptoms or risk factors identified. 17:44 Fall Risk IV access (20 points). [facility] Assessment: 17:05 General: SEE TRIAGE NOTES. . [facility] 17:43 Reassessment: Patient is alert, oriented x 3, equal unlabored respirations, skin jh6 warm/dry/pink. still feeling a little weak but no longer having dizziness. Patient denies pain at this time. Patient states feeling better. 18:45 Reassessment: Patient is alert, oriented x 3, equal unlabored respirations, skin jh6 warm/dry/pink. Patient denies pain at this time. Patient states feeling better. Vital Signs: 17:00 BP 90 / 64; Pulse 68; Resp 16; Temp 97.6(O); Pulse Ox 95% on R/A; Weight 117.03 kg; 6 Height 6 ft. 1 in. (185.42 cm); Pain 2/10; 17:43 BP 117 / 66; Pulse 67; Resp 17; Temp 97.6; Pulse Ox 100% on R/A; Pain 0/10; 6 18:30 BP 129 / 96; Pulse 71; Resp 15; Pulse Ox 100% ; jl7 17:00 Body Mass Index 34.04 (117.03 kg, 185.42 cm) [facility] Vitals: 17:43 Cardiac Rhythm Assessment Regular. [facility] ED Course: 17:00 Patient arrived in ED. [facility] 17:01 Romie Oliver MD is Attending Physician. rn 17:04 Triage completed. [facility] 17:04 Arm band placed on left wrist. Patient placed in an exam room, on a stretcher, on [facility] oxygen, on monitoring analyst, on pulse oximetry. 17:06 No provider procedures requiring assistance completed. [facility] 17:10 Bed in low position. Call light in reach. Side rails up X2. Adult w/ patient. [facility] 17:41 Lala Almanzar, RN is Primary Nurse. [facility] 17:41 Inserted saline lock: 20 gauge in right antecubital area, using aseptic technique. jh6 Blood collected. 17:52 XRAY Chest (1 view) In Process Unspecified. EDMS 19:09 CT Chest For PE Angio In Process Unspecified. EDMS 19:27 Attending Physician role handed off by Romie Oliver MD cha 19:27 Jak Woodson MD is Attending Physician. tiffanie Administered Medications: 17:42 Drug: NS 0.9% 1000 ml Route: IV; Rate: 1000 ml; Site: right antecubital; jh6 19:28 Follow up: Response: No adverse reaction; IV Status: Completed infusion; IV Intake: jl7 1000ml 20:10 Drug: NS 0.9% 1000 ml Route: IV; Rate: 1 bolus; Site: right antecubital; ke1 20:19 Drug: Aspirin Chewable Tablet 162 mg Route: PO; ke1 20:19 Drug: Pepcid (famotidine) 40 mg Route: PO; ke1 20:19 Drug: Zithromax (azithromycin) 500 mg Route: PO; ke1 Medication: 19:29 VIS not applicable for this client. jl7 Intake: 19:28 IV: 1000ml; Total: 1000ml. jl7 Outcome: 19:34 Discharge ordered by . [facility] 20:42 Patient left the ED. bb Signatures: Dispatcher [employer] EDMS Jak Woodson MD MD cha Ballard, Brenda, RN RN bb Romie Oliver MD MD rn Leal, Jahala RN RN jl7 Lala Almanzar RN RN jh6 Jennifer Ledezma RN RN ke1
--- NOTE | 2021-10-19 19:34 | EDPHYS ---
Physician Documentation [facility] Name: Levar Godinez Age: 66 yrs Sex: Male : 1955 Arrival Date: 10/19/2021 Time: 17:00 Bed 4 Private MD: ED Physician Jak Woodson HPI: 10/19 17:14 This 66 yrs old Male presents to ER via EMS with complaints of syncope. rn 17:14 The patient has experienced syncope. Onset: The symptoms/episode began/occurred just rn prior to arrival. Duration: This was a single episode. Associated injury: The patient did not suffer any apparent associated injury. Associated signs and symptoms: Pertinent positives: dizziness, lightheadedness, weakness. 17:19 Current symptoms: generalized weakness. The patient has not experienced similar rn symptoms in the past. The patient has been recently seen by a physician:. Pt reports recent diagnosis of COVID 5 days ago, has been feeling weak and tired and not eating with diarrhea and nausea. Today was out in shop, no AC, thinks got overheated, felt lightheaded and then passed out. No seizure activity. Feels much better now once picked up by EMS and placed in cool environment. NO sob. . Historical: - Allergies: 19:28 No Known Allergies; jl7 - PMHx: 17:04 Anxiety; Back pain; Hypertension; TIA; jh6 - Immunization history:: Adult Immunizations up to date. - Social history:: Smoking status: Patient reports the use of cigarette tobacco products. - Family history:: not pertinent. - Hospitalizations: : No recent hospitalization is reported. ROS: 17:19 Constitutional: Negative for fever, chills, and weight loss, Eyes: Negative for injury, rn pain, redness, and discharge, Neck: Negative for injury, pain, and swelling, Cardiovascular: Negative for chest pain, palpitations, and edema, Respiratory: Negative for shortness of breath, cough, wheezing, and pleuritic chest pain, Abdomen/GI: Negative for abdominal pain, nausea, vomiting, diarrhea, and constipation, Back: Negative for injury and pain, MS/Extremity: Negative for injury and deformity, Skin: Negative for injury, rash, and discoloration, Neuro: Negative for numbness, tingling, and seizure. Exam: 17:19 Constitutional: This is a well developed, well nourished patient who is awake, alert, rn and in no acute distress. Head/Face: Normocephalic, atraumatic. Eyes: Pupils equal round and reactive to light, extra-ocular motions intact. ENT: dry MM Cardiovascular: Regular rate and rhythm. No pulse deficits. Respiratory: No increased work of breathing, no retractions or nasal flaring. Abdomen/GI: Soft, non-tender Skin: Warm, dry MS/ Extremity: Pulses equal, no cyanosis. Neuro: Awake and alert, GCS 15, oriented to person, place, time, and situation. Cranial nerves II-XII grossly intact. Motor strength 5/5 in all extremities. Sensory grossly intact. Cerebellar exam normal. 18:32 ECG was reviewed by the Attending Physician. rn 19:30 Chest/axilla: Inspection: normal, no acute changes. [facility] 19:30 Cardiovascular: Rate: normal, Rhythm: regular, Pulses: no pulse deficits are appreciated, JVD: is not appreciated. Vital Signs: 17:00 BP 90 / 64; Pulse 68; Resp 16; Temp 97.6(O); Pulse Ox 95% on R/A; Weight 117.03 kg; 6 Height 6 ft. 1 in. (185.42 cm); Pain 2/10; 17:43 BP 117 / 66; Pulse 67; Resp 17; Temp 97.6; Pulse Ox 100% on R/A; Pain 0/10; 6 18:30 BP 129 / 96; Pulse 71; Resp 15; Pulse Ox 100% ; jl7 17:00 Body Mass Index 34.04 (117.03 kg, 185.42 cm) [facility] MDM: 17:01 Patient medically screened. rn 19:30 Data reviewed: vital signs, nurses notes, lab test result(s), EKG, radiologic studies, [facility] CT scan, plain films. Data interpreted: nurse monitoring: rate is 71 beats/min, rhythm is regular. Test interpretation: by ED physician or midlevel provider: ECG, plain radiologic studies. Counseling: I had a detailed discussion with the patient and/or guardian regarding: the historical points, exam findings, and any diagnostic results supporting the discharge/admit diagnosis, lab results, radiology results, the need for outpatient follow up, for definitive care, an fly raiser lockstitch. 19:34 ED course: pt refuses mab". [facility] 19:40 ED course: pt will receive the mab. [facility] 10/19 17:11 Order name: CBC with Diff; Complete Time: 18:25 10/19 17:11 Order name: Basic Metabolic Panel; Complete Time: 18:25 10/19 17:11 Order name: Protime (+inr); Complete Time: 18:25 10/19 17:11 Order name: Ptt, Activated; Complete Time: 18:25 10/19 17:11 Order name: XRAY Chest (1 view); Complete Time: 18:25 10/19 17:11 Order name: Troponin High Sensitivity; Complete Time: 18:25 10/19 17:11 Order name: IV Start; Complete Time: 17:42 10/19 17:11 Order name: CT Chest For PE Angio; Complete Time: 19:27 10/19 17:11 Order name: EKG; Complete Time: 17:12 10/19 17:11 Order name: EKG - Nurse/Tech; Complete Time: 18:16 10/19 17:11 Order name: Cardiac monitoring; Complete Time: 17:42 10/19 17:11 Order name: O2 Sat Monitoring; Complete Time: 17:42 10/19 19:30 Order name: PO challenge; Complete Time: 20:18 [facility] 10/19 19:43 Order name: Misc. Order: Bebtelovimab; Complete Time: 20:18 [facility] EC:32 Rate is 69 beats/min. Rhythm is regular. QRS [place] is Normal. [place] interval is normal. QRS rn interval is normal. QT interval is normal. No Q waves. T waves are Normal. No ST changes noted. Clinical impression: Normal ECG. Interpreted by me. Reviewed by me. Administered Medications: 17:42 Drug: NS 0.9% 1000 ml Route: IV; Rate: 1000 ml; Site: right antecubital; jh6 19:28 Follow up: Response: No adverse reaction; IV Status: Completed infusion; IV Intake: jl7 1000ml 20:10 Drug: NS 0.9% 1000 ml Route: IV; Rate: 1 bolus; Site: right antecubital; ke1 20:19 Drug: Aspirin Chewable Tablet 162 mg Route: PO; ke1 20:19 Drug: Pepcid (famotidine) 40 mg Route: PO; ke1 20:19 Drug: Zithromax (azithromycin) 500 mg Route: PO; ke1 Disposition Summary: 10/19/21 19:34 Discharge Ordered Location: Home [facility] Problem: new tiffanie Symptoms: have improved tiffanie Condition: Stable tiffanie Diagnosis - Coronavirus infection, unspecified tiffanie - SARS-associated coronavirus as the cause of diseases classified elsewhere tiffanie - Other obesity tiffanie - Essential (primary) hypertension tiffanie - Dehydration tiffanie - Syncope Near tiffanie Followup: tiffanie - With: Private Physician - When: 2 - 3 days - Reason: Recheck today's complaints, Continuance of care, Re-evaluation by your physician Discharge Instructions: - Discharge Summary Sheet tiffanie - Hypertension, Adult tiffanie - Obesity, Adult tiffanie - Near-Syncope tiffanie - Syncope tiffanie - Weakness tiffanie - Upper Respiratory Infection, Adult, Jjwu-au-Owch tiffanie - Hypertension, Adult, Lkzy-rc-Wjta tiffanie - How to Take Your Blood Pressure, Tzzn-gm-Ewyp tiffanie - Aspirin and Your Heart tiffanie - Managing Your Hypertension tiffanie - COVID-19 tiffanie - COVID-19 Frequently Asked Questions tiffanie - Things to Know about the COVID-19 Pandemic - [facility] - 10 Things You Can Do to Manage Your COVID-19 Symptoms at Home - [facility] tiffanie - COVID-19: Quarantine vs. Isolation - [facility] - Prevent the Spread of COVID-19 if You Are Sick - [facility] tiffanie Forms: - Medication Reconciliation Form [facility] - Thank You Letter tiffanie - Antibiotic Education tiffanie - Prescription Opioid Use [facility] Prescriptions: - Pepcid 20 mg Oral Tablet - take 1 tablet by ORAL route every 12 hours for 30 days; 60 tablet; Refills: 0, tiffanie Product Selection Permitted - Zithromax Z-Mikey 250 mg Oral Tablet - take 1 tablet by ORAL route as directed for 5 days Day 1 - take two (2) tablets [facility] one time. Day 2, 3, 4 , 5 take one (1) tablet once daily.; 6 tablet; Refills: 0, Product Selection Permitted - budesonide 180 mcg/actuation Inhalation aerosol powdr breath activated - inhale 1 puff by INHALATION route 2 times per day; 1 Pump; Refills: 0, Product sb3 Selection Permitted Signatures: Dispatcher [employer] Jak Richter MD MD cha Nieto, Roman, MD MD rn Leal, Jahala RN RN jl7 Lala Almanzar RN RN jh6 Ebrottie, Kouassi, RN RN ke1
[2021-10-19] MEDS ORDERED: ASPIRIN 81 MG CHEWABLE TABLET ONE (19:59)
[2021-10-19] MEDS ORDERED: AZITHROMYCIN 250 MG TAB ONE (19:59)
[2021-10-19] MEDS ORDERED: FAMOTIDINE 20 MG TAB ONE (20:00)
[2021-10-19] MEDS ORDERED: BEBTELOVIMAB 175 MG/2 ML VIAL IV ONE (20:00)
[2021-10-19 21:39] VITALS: TEMP 97.6
[2021-10-19 21:41] VITALS: O2SAT 100
[2021-10-19 21:45] VITALS: BP 129/96
--- NOTE | 2021-10-20 08:21 | EKG ---
Test Date: 2021-10-19 Test Time: 18:12:20 Sourcing Analyst: MAYELA MEASUREMENT RESULTS: Intervals: Rate: 69 AK: 176 QRSD: 96 QT: 386 QTc: 413 [place]: P: 49 AK: 176 QRS: 8 T: 58 INTERPRETIVE STATEMENTS: Normal sinus rhythm Normal ECG Compared to ECG 10/14/2021 08:21:16 No significant changes Electronically Signed On 10-20-21 08:18:21 CDT by Juan F Lam
== END 2021-10-19 20:42 | disposition home or self-care (01) ==
LOC: ER 16:43
DX: U07.1 COVID-19 (principal); E86.0 Dehydration; I10 Essential (primary) hypertension; E66.9 Obesity, unspecified; Z68.34 Body mass index [BMI] 34.0-34.9, adult; Z86.73 Personal history of transient ischemic attack (TIA), and cerebral infarction without residual deficits
CPT/HCPCS: 96361; 93005; 85025; 80048; 36415; 85610; 85730; 84484; 71275; 71045; 96360; 99284; Q9967; J7030 ×2

== ENCOUNTER 2021-12-20 12:59 | Emergency (ER) | payer OTHER ==
[2021-12-20] MEDS ORDERED: HYDROCODONE/APAP 10/325 TAB ONE (13:39)
[2021-12-20] MEDS ORDERED: KETOROLAC 30 MG/ML INJ ONE (14:27)
[2021-12-20] MEDS ORDERED: MORPHINE 2 MG/ML SYR ONE (14:27)
--- NOTE | 2021-12-20 14:57 | RAD REPORT ---
EXAM DESCRIPTION: RAD - Ribs Bilateral - 12/20/2021 2:45 pm CLINICAL HISTORY: PAIN Fall, left-sided pain COMPARISON: Chest Single View dated 10/19/2021 FINDINGS: Thin lucency is seen in the lateral aspect of the left tenth rib suspicious for nondisplac ed fracture. No underlying pneumothorax evident.
--- NOTE | 2021-12-20 15:06 | ER ---
Nurse's Notes [facility] Name: Levar Godinez Age: 66 yrs Sex: Male : 1955 Arrival Date: 12/20/2021 Time: 13:02 Bed 11 Private MD: Kael Mobley R Diagnosis: Fracture of one rib, left side Presentation: 12/20 13:12 Chief complaint: Patient states: Reports syncopal episode on and fell down and jl7 hit left side on stairs. Reports pain with breathing on left side. Coronavirus screen: At this time, the client does not indicate any symptoms associated with coronavirus-19. Ebola Screen: No symptoms or risks identified at this time. Initial Sepsis Screen: Does the patient meet any 2 criteria? No. Patient's initial sepsis screen is negative. Does the patient have a suspected source of infection? No. Patient's initial sepsis screen is negative. Risk Assessment: Do you want to hurt yourself or someone else? Patient reports no desire to harm self or others. Onset of symptoms was December 17, 2021. 13:12 Method Of Arrival: Wheelchair jl7 13:12 Acuity: ADRIANA 3 jl7 Triage Assessment: 13:18 General: Appears in no apparent distress. uncomfortable, Behavior is calm, cooperative, jl7 appropriate for age. Pain: Complains of pain in anterior aspect of left lateral abdomen and posterior aspect of left lateral abdomen Pain currently is 9 out of 10 on a pain scale. Historical: - Allergies: 13:21 No Known Allergies; jl7 - Home Meds: 13:18 Hydrocodone-Acetaminophen Oral [Active]; lisinopril 40 mg Oral tab 1 tab once daily jl7 [Active]; tizanidine oral [Active]; - PMHx: 13:18 Anxiety; Back pain; Hypertension; TIA; jl7 - PSHx: 13:18 Appendectomy; Knee; jl7 - Immunization history:: Adult Immunizations unknown. - Social history:: Smoking status: Patient denies any tobacco usage or history of. Screenin:41 Abuse screen: Denies threats or abuse. Denies injuries from another. Nutritional hb screening: No deficits noted. Tuberculosis screening: No symptoms or risk factors identified. Fall Risk None identified. Assessment: 13:22 General: Luis, WEDDING DESIGNER in triage assessing pt. jl7 13:40 General: See triage assessment. hb 14:41 Reassessment: Patient appears in no apparent distress at this time. Patient and/or hb family updated on plan of care and expected duration. Pain level reassessed. Patient is alert, oriented x 3, equal unlabored respirations, skin warm/dry/pink. 15:25 Reassessment: Patient appears in no apparent distress at this time. Patient and/or hb family updated on plan of care and expected duration. Pain level reassessed. Patient is alert, oriented x 3, equal unlabored respirations, skin warm/dry/pink. Vital Signs: 13:12 BP 160 / 102; Pulse 90; Resp 17; Temp 97.9; Pulse Ox 99% ; Weight 122.47 kg; Height 6 jl7 ft. 0 in. (182.88 cm); Pain 9/10; 13:12 Body Mass Index 36.62 (122.47 kg, 182.88 cm) jl7 ED Course: 13:02 Patient arrived in ED. mr 13:02 Kael Mobley MD is Private Physician. mr 13:18 Triage completed. jl7 13:18 Arm band placed on right wrist. jl7 13:21 Luis Saxena is PHCP. jl9 13:21 Jak Woodson MD is Attending Physician. jl9 13:30 Kristen Hurley, RN is Primary Nurse. hb 14:41 Patient has correct armband on for positive identification. hb 14:47 XRAY Ribs BILATERAL In Process Unspecified. EDMS 15:30 No provider procedures requiring assistance completed. Patient did not have IV access hb during this emergency room visit. Administered Medications: 13:30 Drug: [place] (HYDROcodone-acetaminophen) 10 mg-325 mg 1 tabs Route: PO; jl7 14:41 Follow up: Response: No adverse reaction hb 14:40 Drug: morphine 2 mg Route: IM; Site: left deltoid; hb 15:33 Follow up: Response: No adverse reaction hb 14:40 Drug: Ketorolac 60 mg Route: IM; Site: right deltoid; hb 15:33 Follow up: Response: No adverse reaction hb Medication: 15:25 VIS not applicable for this client. hb Outcome: 15:06 Discharge ordered by . jl9 15:30 Discharged to home ambulatory. hb 15:30 Condition: stable 15:30 Discharge instructions given to patient, Instructed on discharge instructions, follow up and referral plans. medication usage, Demonstrated understanding of instructions, follow-up care, medications, Prescriptions given X 2. 15:31 Patient left the ED. Signatures: Dispatcher [employer] EVANNJ Maria Teresa Barth XaviKristen, Dulce Gomez RN, RN RN jl7 Linares, John jl9 Corrections: (The following items were deleted from the chart) 13:20 13:18 PSHx: Unable to Obtain; isabella mason
--- NOTE | 2021-12-20 15:06 | EDPHYS ---
Physician Documentation [facility] Name: Levar Godinez Age: 66 yrs Sex: Male : 1955 Arrival Date: 12/20/2021 Time: 13:02 Bed 11 Private MD: Kael Mobley R ED Physician Jak Woodson HPI: 12/20 13:25 This 66 yrs old Male presents to ER via Wheelchair with complaints of left jl9 sided rib pain from a fall a few days ago. . 13:25 Onset: The symptoms/episode began/occurred 4 day(s) ago. jl9 Historical: - Allergies: 13:21 No Known Allergies; jl7 - Home Meds: 13:18 Hydrocodone-Acetaminophen Oral [Active]; lisinopril 40 mg Oral tab 1 tab once daily jl7 [Active]; tizanidine oral [Active]; - PMHx: 13:18 Anxiety; Back pain; Hypertension; TIA; jl7 - PSHx: 13:18 Appendectomy; Knee; jl7 - Immunization history:: Adult Immunizations unknown. - Social history:: Smoking status: Patient denies any tobacco usage or history of. ROS: 13:26 Constitutional: Negative for fever, chills, and weight loss, Eyes: Negative for injury, jl9 pain, redness, and discharge, ENT: Negative for injury, pain, and discharge, Neck: Negative for injury, pain, and swelling, Cardiovascular: Negative for chest pain, palpitations, and edema, Respiratory: Negative for shortness of breath, cough, wheezing, and pleuritic chest pain, Abdomen/GI: Negative for abdominal pain, nausea, vomiting, diarrhea, and constipation, Back: Negative for injury and pain, MS/Extremity: Negative for injury and deformity, Skin: Negative for injury, rash, and discoloration, Neuro: Negative for headache, weakness, numbness, tingling, and seizure, Psych: Negative for depression, anxiety, suicide ideation, homicidal ideation, and hallucinations, Allergy/Immunology: Negative for hives, rash, and allergies, Endocrine: Negative for neck swelling, polydipsia, polyuria, polyphagia, and marked weight changes, Hematologic/Lymphatic: Negative for swollen nodes, abnormal bleeding, and unusual bruising. Exam: 13:26 Constitutional: This is a well developed, well nourished patient who is awake, alert, jl9 and in no acute distress. Head/Face: Normocephalic, atraumatic. Eyes: Pupils equal round and reactive to light, extra-ocular motions intact. Lids and lashes normal. Conjunctiva and sclera are non-icteric and not injected. Cornea within normal limits. Periorbital areas with no swelling, redness, or edema. ENT: Mucous membranes moist. Neck: Trachea midline, no thyromegaly or masses palpated, and no cervical lymphadenopathy. Supple, full range of motion without nuchal rigidity, or vertebral point tenderness. No Meningismus. 13:26 Cardiovascular: Regular rate and rhythm with a normal S1 and S2. No gallops, murmurs, or rubs. Normal PMI, no JVD. No pulse deficits. Respiratory: Lungs have equal breath sounds bilaterally, clear to auscultation and percussion. No rales, rhonchi or wheezes noted. No increased work of breathing, no retractions or nasal flaring. Abdomen/GI: Soft, non-tender, with normal bowel sounds. No distension or tympany. No guarding or rebound. No evidence of tenderness throughout. Back: No spinal tenderness. No costovertebral tenderness. Full range of motion. Skin: Warm, dry with normal turgor. Normal color with no rashes, no lesions, and no evidence of cellulitis. MS/ Extremity: Pulses equal, no cyanosis. Neurovascular intact. Full, normal range of motion. Neuro: Awake and alert, GCS 15, oriented to person, place, time, and situation. Cranial nerves II-XII grossly intact. Motor strength 5/5 in all extremities. Sensory grossly intact. Cerebellar exam normal. Normal gait. Psych: Awake, alert, with orientation to person, place and time. Behavior, mood, and affect are within normal limits. 13:26 Chest/axilla: Inspection: normal, Palpation: tenderness, of the left lateral anterior chest. Vital Signs: 13:12 BP 160 / 102; Pulse 90; Resp 17; Temp 97.9; Pulse Ox 99% ; Weight 122.47 kg; Height 6 jl7 ft. 0 in. (182.88 cm); Pain 9/10; 13:12 Body Mass Index 36.62 (122.47 kg, 182.88 cm) jl7 MDM: 13:21 Patient medically screened. jl9 13:26 Data reviewed: vital signs, nurses notes. jl9 15:05 Counseling: I had a detailed discussion with the patient and/or guardian regarding: the jl9 historical points, exam findings, and any diagnostic results supporting the discharge/admit diagnosis, radiology results, the need for outpatient follow up, to return to the emergency department if symptoms worsen or persist or if there are any questions or concerns that arise at home. 12/20 13:23 Order name: XRAY Ribs BILATERAL; Complete Time: 15:02 jl9 Administered Medications: 13:30 Drug: [place] (HYDROcodone-acetaminophen) 10 mg-325 mg 1 tabs Route: PO; jl7 14:41 Follow up: Response: No adverse reaction hb 14:40 Drug: morphine 2 mg Route: IM; Site: left deltoid; hb 15:33 Follow up: Response: No adverse reaction hb 14:40 Drug: Ketorolac 60 mg Route: IM; Site: right deltoid; hb 15:33 Follow up: Response: No adverse reaction hb Disposition Summary: 12/20/21 15:06 Discharge Ordered Location: Home jl9 Condition: Stable jl9 Diagnosis - Fracture of one rib, left side jl9 Followup: jl9 - With: Private Physician - When: 1 - 2 days - Reason: Recheck today's complaints, Continuance of care, Re-evaluation by your physician Discharge Instructions: - Discharge Summary Sheet jl9 - Rib Fracture, [id number] jl9 Forms: - Medication Reconciliation Form jl9 - Thank You Letter jl9 - Antibiotic Education jl9 - Prescription Opioid Use jl9 Prescriptions: - Cyclobenzaprine 10 mg Oral Tablet - take 1 tablet by ORAL route every 8 hours As needed; 30 tablet; Refills: 0, jl9 Product Selection Permitted - Tramadol 50 mg Oral Tablet - take 1 tablet by ORAL route every 8 hours as needed; 20 tablet; Refills: 0, jl9 Product Selection Permitted Signatures: Dispatcher [employer] Kristen Rodriguez RN RN Dulce Jiagn RN RN jl7 Luis Saxena jl9 Corrections: (The following items were deleted from the chart) 13:20 13:18 PSHx: Unable to Obtain; jl7 7
[2021-12-20 16:28] VITALS: BP 160/102; TEMP 97.9; O2SAT 99
== END 2021-12-20 15:31 | disposition home or self-care (01) ==
LOC: ER 12:59
DX: S22.32XA Fracture of one rib, left side, initial encounter for closed fracture (principal); I10 Essential (primary) hypertension
CPT/HCPCS: 71110; 96372; 99283; J2270

== ENCOUNTER 2022-05-27 14:50 | Emergency (ER) | payer OTHER ==
[2022-05-27] MEDS ORDERED: HYDROCODONE/APAP 10/325 TAB ONE (15:31)
--- NOTE | 2022-05-27 16:15 | RAD REPORT ---
EXAM DESCRIPTION: RAD - Forearm Right - 05/27/2022 4:02 pm CLINICAL HISTORY: Right arm pain FINDINGS: No fracture is seen. Marked arthritis elbow
--- NOTE | 2022-05-27 16:17 | RAD REPORT ---
EXAM DESCRIPTION: RAD - Hand Right 3 View - 05/27/2022 4:02 pm CLINICAL HISTORY: Right hand pain status post injury FINDINGS: No fracture or dislocation is seen.
[2022-05-27] MEDS ORDERED: MORPHINE 4 MG/ML SYR ONE (17:00)
--- NOTE | 2022-05-27 17:11 | ER ---
Nurse's Notes [facility] Name: Levar Godinez Age: 66 yrs Sex: Male : 1955 Arrival Date: 05/27/2022 Time: 14:53 Bed 13 Private MD: Diagnosis: Contusion of right hand Presentation: 05/27 15:05 Chief complaint: Patient states: Chain on a saw popped and hit the right ring-finger jl7 knuckle 1.5 hrs ago, reports continued pain now radiating up right arm to elbow at this time, difficulty moving fingers. Coronavirus screen: Vaccine status: Patient reports being unvaccinated. At this time, the client does not indicate any symptoms associated with coronavirus-19. Ebola Screen: No symptoms or risks identified at this time. Initial Sepsis Screen: Does the patient meet any 2 criteria? No. Patient's initial sepsis screen is negative. Does the patient have a suspected source of infection? No. Patient's initial sepsis screen is negative. Risk Assessment: Do you want to hurt yourself or someone else? Patient reports no desire to harm self or others. Onset of symptoms was May 27, 2022. 15:05 Method Of Arrival: Ambulatory jl7 15:05 Acuity: ADRIANA 4 jl7 Triage Assessment: 15:07 General: Appears in no apparent distress. uncomfortable, Behavior is calm, cooperative, jl7 appropriate for age. Pain: Complains of pain in right hand Pain radiates to right arm. Musculoskeletal: Range of motion: limited in MCP of right middle finger, MCP of right ring finger and MCP of right little finger. Injury Description: pain to right hand. Historical: - Allergies: 15:07 No Known Allergies; jl7 - Home Meds: 15:07 lisinopril 40 mg Oral tab 1 tab once daily [Active]; hydrocodone-acetaminophen 10-325 jl7 mg oral tab [Active]; tizanidine Oral [Active]; - PMHx: 15:07 Anxiety; Back pain; Hypertension; TIA; jl7 - PSHx: 15:07 Appendectomy; knee; jl7 - Immunization history:: Client reports having NOT received the Covid vaccine. - Social history:: Smoking status: Patient denies any tobacco usage or history of. Screenin:31 [facility] ED Fall Risk Assessment (Adult) History of falling in the last 3 months, mb9 including since admission No falls in past 3 months (0 pts) Confusion or Disorientation No (0 pts) Intoxicated or Sedated No (0 pts) Impaired Gait No (0 pts) Mobility Assist Device Used No (0 pt) Altered Elimination No (0 pt) Score/Fall Risk Level 0 - 2 = Low Risk Oriented to surroundings, Maintained a safe environment, Educated pt \T\ family on fall prevention, incl call for assistance when getting out of bed. Abuse screen: Denies threats or abuse. Nutritional screening: No deficits noted. Tuberculosis screening: No symptoms or risk factors identified. Assessment: 15:29 General: Appears in no apparent distress. Behavior is calm, cooperative, appropriate mb9 for age. Pain: Complains of pain in MCP of right little finger and MCP of right ring finger and MCP of right middle finger and right hand Pain radiates to right arm Pain currently is 8 out of 10 on a pain scale. Quality of pain is described as throbbing, Pain began suddenly, Is continuous, Aggravated by increased activity. Neuro: [place] Agitation-Sedation Scale (RASS): 0 - Alert and Calm Level of Consciousness is awake, alert, obeys commands, Oriented to person, place, time, situation, Appropriate for age. Cardiovascular: Capillary refill < 3 seconds is brisk Patient's skin is warm and dry. Rhythm is regular. Respiratory: Airway is patent Respiratory effort is even, unlabored, Respiratory pattern is regular, symmetrical. GI: No signs and/or symptoms were reported involving the gastrointestinal system. : No signs and/or symptoms were reported regarding the genitourinary system. EENT: No signs and/or symptoms were reported regarding the EENT system. Derm: Skin is pink, warm \T\ dry. Musculoskeletal: Range of motion: limited in right hand. 16:45 Reassessment: No changes from previously documented assessment. Patient and/or family mb9 updated on plan of care and expected duration. Pain level reassessed. Patient is alert, oriented x 3, equal unlabored respirations, skin warm/dry/pink. Patient states symptoms have not improved. Vital Signs: 15:05 BP 161 / 93; Pulse 93; Resp 17; Temp 98.6; Pulse Ox 99% ; Weight 122.47 kg; Height 6 jl7 ft. 0 in. (182.88 cm); Pain 8/10; 16:28 BP 161 / 92; Pulse 94; Resp 20; Pulse Ox 98% on R/A; mb9 15:05 Body Mass Index 36.62 (122.47 kg, 182.88 cm) 7 ED Course: 14:53 Patient arrived in ED. mr 15:03 Armando Marie PA is PHCP. [facility] 15:03 Yumiko Bowman MD is Attending Physician. jmm 15:07 Triage completed. jl7 15:07 Arm band placed on right wrist. 7 15:14 Maria Teresa Sanchez, RN is Primary Nurse. mb9 15:31 No provider procedures requiring assistance completed. mb9 16:04 Hand Right 3 View XRAY In Process Unspecified. EDMS 16:04 Forearm Right XRAY In Process Unspecified. EDMS 17:28 Patient did not have IV access during this emergency room visit. mb9 Administered Medications: 15:29 Drug: [place] (HYDROcodone-acetaminophen) 10 mg-325 mg 1 tabs Route: PO; mb9 17:00 Follow up: Response: No adverse reaction mb9 17:00 Drug: morphine 4 mg Route: IM; Site: right deltoid; mb9 Medication: 15:31 VIS not applicable for this client. mb9 Outcome: 17:11 Discharge ordered by . [facility] 17:28 Discharged to home ambulatory. mb9 17:28 Condition: stable 17:28 Discharge instructions given to patient, Instructed on discharge instructions, follow up and referral plans. Demonstrated understanding of instructions, follow-up care. 17:29 Patient left the ED. mb9 Signatures: Dispatcher [employer] EDAR Armando Marie PA PA Maria Teresa Padilla LyonsDulce RN RN jl7 Maria Teresa Sanchez, JEFF RN mb9
--- NOTE | 2022-05-27 17:11 | EDPHYS ---
Physician Documentation [facility] Name: Levar Godinez Age: 66 yrs Sex: Male : 1955 Arrival Date: 05/27/2022 Time: 14:53 Bed 13 Private MD: ED Physician Yumiko Bowman HPI: 05/27 15:14 This 66 yrs old Male presents to ER via Ambulatory with complaints of Hand Injury. jmm 15:14 The patient or guardian reports injury, pain. Onset: The symptoms/episode jmm began/occurred acutely. Modifying factors: The symptoms are alleviated by nothing, the symptoms are aggravated by nothing. Associated signs and symptoms: Pertinent positives:. This is a 66 year old male with a history of htn that presents to the ED with complaints of right hand pain after being hit with a chain. Pain radiates up his forearm into his right elbow. Denies other known injury. . Historical: - Allergies: 15:07 No Known Allergies; jl7 - Home Meds: 15:07 lisinopril 40 mg Oral tab 1 tab once daily [Active]; hydrocodone-acetaminophen 10-325 jl7 mg oral tab [Active]; tizanidine Oral [Active]; - PMHx: 15:07 Anxiety; Back pain; Hypertension; TIA; jl7 - PSHx: 15:07 Appendectomy; knee; jl7 - Immunization history:: Client reports having NOT received the Covid vaccine. - Social history:: Smoking status: Patient denies any tobacco usage or history of. ROS: 15:14 Constitutional: Negative for fever, chills, and weight loss, Cardiovascular: Negative jmm for chest pain, palpitations, and edema, Respiratory: Negative for shortness of breath, cough, wheezing, and pleuritic chest pain. 15:14 MS/extremity: Positive for injury or acute deformity. 15:14 All other systems are negative. Exam: 15:14 Constitutional: This is a well developed, well nourished patient who is awake, alert, jmm and in no acute distress. Head/Face: atraumatic. Eyes: EOMI, no conjunctival erythema appreciated ENT: Moist Mucus Membranes Neck: Trachea midline, Supple Chest/axilla: Normal chest wall appearance and motion. Cardiovascular: Regular rate and rhythm. No edema appreciated Respiratory: Normal respirations, no respiratory distress appreciated Abdomen/GI: Non distended Back: Normal ROM 15:14 Musculoskeletal/extremity: dorsum of the right hand diffusely ttp, abrasion noted to the right 4th mtp joint, <2 sec distal cap refill, painful rom appreciated, NVI. 15:14 Skin: abrasion noted to the right hand. 15:14 Neuro: Orientation: is normal, Mentation: is normal, Memory: is normal. 15:14 Psych: Behavior/mood is pleasant, cooperative. Vital Signs: 15:05 BP 161 / 93; Pulse 93; Resp 17; Temp 98.6; Pulse Ox 99% ; Weight 122.47 kg; Height 6 jl7 ft. 0 in. (182.88 cm); Pain 8/10; 16:28 BP 161 / 92; Pulse 94; Resp 20; Pulse Ox 98% on R/A; mb9 15:05 Body Mass Index 36.62 (122.47 kg, 182.88 cm) jl7 MDM: 15:14 Patient medically screened. [facility] 17:10 Data reviewed: vital signs, nurses notes. [facility] 05/27 15:20 Order name: Hand Right 3 View XRAY; Complete Time: 16:19 [facility] 05/27 15:20 Order name: Forearm Right XRAY; Complete Time: 16:16 [facility] Administered Medications: 15:29 Drug: [place] (HYDROcodone-acetaminophen) 10 mg-325 mg 1 tabs Route: PO; mb9 17:00 Follow up: Response: No adverse reaction mb9 17:00 Drug: morphine 4 mg Route: IM; Site: right deltoid; mb9 Disposition Summary: 05/27/22 17:11 Discharge Ordered Location: Home [facility] Condition: Stable [facility] Diagnosis - Contusion of right hand [facility] Followup: [facility] - With: Private Physician - When: 2 - 3 days - Reason: Recheck today's complaints, Continuance of care, Re-evaluation by your physician Discharge Instructions: - Hand Contusion [facility] - Discharge Summary Sheet mb9 Forms: - Medication Reconciliation Form [facility] - Thank You Letter [facility] - Antibiotic Education [facility] - Prescription Opioid Use [facility] - Work release form mb9 Signatures: Dispatcher [employer] Armando Frank PA PA jmm Leal, Jahala, RN RN jl7 Maria Teresa Sanchez RN RN mb9
[2022-05-27 17:57] VITALS: TEMP 98.6
[2022-05-27 17:58] VITALS: BP 161/92; O2SAT 98
== END 2022-05-27 17:29 | disposition home or self-care (01) ==
LOC: ER 14:50
DX: S60.221A Contusion of right hand, initial encounter (principal); I10 Essential (primary) hypertension; F41.9 Anxiety disorder, unspecified; Z86.73 Personal history of transient ischemic attack (TIA), and cerebral infarction without residual deficits
CPT/HCPCS: 96372; 99283

== ENCOUNTER → 2023-04-25 | Emergency (ER) | payer OTHER ==
[~2023-04-25] MED LIST: CYCLOBENZAPRINE 10 MG TAB ONE; KETOROLAC 30 MG/ML INJ ONE; MORPHINE 4 MG/ML SYR ONE; ONDANSETRON 4 MG (ODT) TAB ONE
--- NOTE | 2023-04-25 17:50 | RAD REPORT ---
EXAM DESCRIPTION: RAD - Shoulder Left 2 View - 04/25/2023 5:42 pm CLINICAL HISTORY: Pain;Smash injury COMPARISON: <Comparisons> FINDINGS: Moderate AC joint and glenohumeral joint arthritic changes. No acute fracture or dislocati on.
--- NOTE | 2023-04-25 18:26 | RAD REPORT ---
EXAM DESCRIPTION: CT - Head Brain Wo Cont - 04/25/2023 6:12 pm CLINICAL HISTORY: TRAUMA COMPARISON: <Comparisons> TECHNIQUE: All CT scans are performed using dose optimization technique as appropriate and may inclu de automated exposure control or mA/KV adjustment according to patient size. FINDINGS: No intracranial hemorrhage, hydrocephalus or extra-axial fluid collection.No areas of brai n edema or evidence of midline shift. The paranasal sinuses and mastoids are clear. The calvarium is intact. IMPRESSION: No acute intracranial abnormality.
--- NOTE | 2023-04-25 18:34 | EDPHYS ---
Physician Documentation [facility] Name: Levar Godinez Age: 67 yrs Sex: Male : 1955 Arrival Date: 04/25/2023 Time: 16:47 Bed 11 Private MD: ED Physician Jak Woodson HPI: 04/25 17:30 This 67 yrs old Male presents to ER via Ambulatory with complaints of Fall Injury, sb4 Shoulder Pain, Hit Head. 17:30 Details of fall: The patient fell from an upright position, while walking, and struck a sb4 concrete surface. Onset: The symptoms/episode began/occurred just prior to arrival. Associated injuries: The patient sustained injury to the head, hematoma, anterior aspect of left shoulder, decreased range of motion, painful injury. The patient has not experienced similar symptoms in the past. The patient has not recently seen a physician. Historical: - Allergies: 17:25 No Known Allergies; ph - Home Meds: 17:25 hydrocodone-acetaminophen 10-325 mg Oral tab [Active]; lisinopril 40 mg Oral tab 1 tab ph once daily [Active]; - PMHx: 17:25 Anxiety; Back pain; Hypertension; TIA; ph - PSHx: 17:25 Appendectomy; knee; ph - Immunization history:: Adult Immunizations unknown. - Social history:: Smoking status: unknown. - Immunization history: Last tetanus immunization: unknown. ROS: 17:30 Constitutional: Negative for fever, chills, and weight loss, sb4 17:30 MS/extremity: Positive for pain, of the anterior aspect of left shoulder, 17:30 All other systems are negative, Exam: 17:30 Constitutional: This is a well developed, well nourished patient who is awake, alert, sb4 and in no acute distress. Eyes: Extra-ocular motions intact. Periorbital areas with no swelling, redness, or edema. ENT: Mucous membranes moist. Cardiovascular: Regular rate and rhythm with a normal S1 and S2. Respiratory: Lungs have equal breath sounds bilaterally, clear to auscultation and percussion. No rales, rhonchi or wheezes noted. No increased work of breathing, no retractions or nasal flaring. Abdomen/GI: Soft, non-tender, no distension. Skin: Warm, dry with normal turgor. Normal color with no rashes, no lesions, and no evidence of cellulitis. Neuro: Awake and alert, GCS 15, oriented to person, place, time, and situation. Motor strength 5/5 in all extremities. Sensory grossly intact. 17:30 Head/face: Noted is hematoma, that is mild, of the forehead, 17:30 Musculoskeletal/extremity: Circulation is intact in all extremities. Pulses: are normal with no appreciated deficits, Perfusion: the extremity is normally perfused throughout, Joints: the left shoulder displays deformity, limited range of motion, pain at rest, painful range of motion, tenderness, Vital Signs: 17:23 BP 189 / 108; Pulse 86; Resp 18; Temp 97.6; Pulse Ox 99% ; Weight 122.47 kg; Height 6 ph ft. 0 in. ; 19:09 BP 165 / 87; Pulse 78; Resp 18; Temp 97.6; Pulse Ox 99% on R/A; rv 17:23 Body Mass Index 36.62 (122.47 kg, 182.88 cm) ph Seth Coma Score: 18:00 Eye Response: spontaneous(4). Motor Response: obeys commands(6). Verbal Response: ph oriented(5). Total: 15. 19:09 Eye Response: spontaneous(4). Motor Response: obeys commands(6). Verbal Response: rv oriented(5). Total: 15. Trauma Score (Adult): 18:00 Eye Response: spontaneous(1); Verbal Response: oriented(1); Motor Response: obeys ph commands(2); Systolic BP: > 89 mm Hg(4); Respiratory Rate: 10 to 29 per min(4); [place] Score: 15; Trauma Score: 12 19:09 Eye Response: spontaneous(1); Verbal Response: oriented(1); Motor Response: obeys rv commands(2); Systolic BP: > 89 mm Hg(4); Respiratory Rate: 10 to 29 per min(4); [place] Score: 15; Trauma Score: 12 MDM: 17:25 Patient medically screened. sb4 17:30 Differential diagnosis: abrasion, closed head injury, contusion, fracture, sprain, sb4 strain. 18:33 Data reviewed: vital signs, nurses notes, radiologic studies, and as a result, I will sb4 discharge patient. Historians other than the Patient: Spouse/Significant Other: . Care significantly affected by the following chronic conditions: Hypertension. Counseling: I had a detailed discussion with the patient and/or guardian regarding the historical points, exam findings, and any diagnostic results supporting the discharge/admit diagnosis, the presence of at least one elevated blood pressure reading (>120/80) during this emergency department visit, radiology results, the need for outpatient follow up, a orthopedic surgeon, if pain persists, to return to the emergency department if symptoms worsen or persist or if there are any questions or concerns that arise at home. 04/25 17:30 Order name: Head Brain Wo Cont CT; Complete Time: 18:28 sb4 04/25 17:30 Order name: Shoulder Left (2 View) XRAY; Complete Time: 17:56 sb4 Administered Medications: 17:57 Drug: morphine IM 4 mg IM once Route: IM; Site: right deltoid; ph 19:08 Follow up: Response: No adverse reaction rv 17:57 Drug: Ondansetron Oral Disintegrating Tablet Oral Disintegrating Tablet 4 mg PO once ph Route: PO; 19:08 Follow up: Response: No adverse reaction rv 19:08 Drug: Cyclobenzaprine PO 10 mg PO once Route: PO; rv 19:08 Follow up: Response: No adverse reaction rv 19:08 Drug: Ketorolac IM 30 mg IM once Route: IM; Site: right deltoid; rv 19:08 Follow up: Response: No adverse reaction rv Disposition Summary: 04/25/23 18:34 Discharge Ordered Notes: Location: Home sb4 Problem: new sb4 Symptoms: have improved sb4 Condition: Stable sb4 Diagnosis - Sprain of shoulder joint sb4 Followup: sb4 - With: Ameya Adams MD - When: As needed - Reason: Recheck today's complaints, Re-evaluation by your physician Followup: sb4 - With: Benjie Chilel MD - When: As needed - Reason: Recheck today's complaints, Re-evaluation by your physician Followup: sb4 - With: Daniel Evangelista MD - When: As needed - Reason: Recheck today's complaints, Re-evaluation by your physician Discharge Instructions: - Discharge Summary Sheet sb4 - How to Use a Shoulder Immobilizer sb4 - Shoulder Sprain sb4 Forms: - Medication Reconciliation Form sb4 - Thank You Letter sb4 - Antibiotic Education sb4 - Prescription Opioid Use sb4 - Patient Portal Instructions sb4 - Leadership Thank You Letter sb4 Prescriptions: - Cyclobenzaprine 10 mg Oral Tablet - take 1 tablet ORAL route every 8 hours As needed; 30 tablet; Refills: 0, sb4 Product Selection Permitted Signatures: Dispatcher [employer] Darline Richards, RN RN Ralph Lopez RN RN Litzy Dooley PA-C PA-C sb4
--- NOTE | 2023-04-25 18:34 | ER ---
Nurse's Notes [facility] Name: Levar Godinez Age: 67 yrs Sex: Male : 1955 Arrival Date: 04/25/2023 Time: 16:47 Bed 11 Private MD: Diagnosis: Sprain of shoulder joint Presentation: 04/25 17:23 Chief complaint: Patient states: Slipped and fell walking up ramp to home, c/o pain to ph L shoulder and arm, hematoma above L eye, denies LOC or blood thinner use. Coronavirus screen: Vaccine status: Patient reports receiving the 2nd dose of the covid vaccine. Ebola Screen: No symptoms or risks identified at this time. Initial Sepsis Screen: Does the patient meet any 2 criteria? No. Patient's initial sepsis screen is negative. Does the patient have a suspected source of infection? No. Patient's initial sepsis screen is negative. Risk Assessment: Do you want to hurt yourself or someone else? Patient reports no desire to harm self or others. Onset of symptoms was April 25, 2023. 17:23 Method Of Arrival: Ambulatory ph 17:23 Acuity: ADRIANA 3 ph 18:00 Care prior to arrival: None. Mechanism of Injury: Fall from standing position. Trauma ph event details: Injury occurred in the [facility], Injury occurred: at home. Injury occurred: April 25, 2023. Historical: - Allergies: 17:25 No Known Allergies; ph - Home Meds: 17:25 hydrocodone-acetaminophen 10-325 mg Oral tab [Active]; lisinopril 40 mg Oral tab 1 tab ph once daily [Active]; - PMHx: 17:25 Anxiety; Back pain; Hypertension; TIA; ph - PSHx: 17:25 Appendectomy; knee; ph - Immunization history:: Adult Immunizations unknown. - Social history:: Smoking status: unknown. - Immunization history: Last tetanus immunization: unknown. Screenin:59 [facility] ED Fall Risk Assessment (Adult) History of falling in the last 3 months, ph including since admission Yes- single mechanical fall (1 pt) Confusion or Disorientation No (0 pts) Intoxicated or Sedated No (0 pts) Impaired Gait No (0 pts) Mobility Assist Device Used No (0 pt) Altered Elimination No (0 pt) Score/Fall Risk Level 0 - 2 = Low Risk Oriented to surroundings, Maintained a safe environment, Provided non-skid footwear, Hourly rounding (assess needs \T\ fall precautionary measures) done. Abuse screen: Denies threats or abuse. Denies injuries from another. Abuse screen: Denies injuries from another. Nutritional screening: No deficits noted. Tuberculosis screening: No symptoms or risk factors identified. Primary Survey: 17:58 NO uncontrolled hemorrhage observed. A: The client is awake and alert. The airway is ph patent. Breathing/Chest: Spontaneous respiratory effort, equal unlabored respirations, breath sounds clear bilaterally, regular pattern, symmetrical chest rise and fall. Circulation: No external hemorrhage present. Regular and strong central pulse, skin warm/dry/normal color. Disability Pupils are equal, round, reactive to light and accommodation. Exposure/Environment: There is no evidence of uncontrolled external bleeding. Obvious injury(ies) are noted at this time: hematoma above L eye. 19:09 Reassessment Alertness and Airway: Awake and alert. The airway is patent. Breathing: rv Spontaneous respiratory effort, equal unlabored respirations, breath sounds clear bilaterally, regular pattern with symmetrical chest rise and fall. Circulation: No external hemorrhage noted. Regular and strong central pulse, skin warm/dry/normal color. Disability: Pupils Pupils are equal, round, reactive to light and accomodation. Secondary Survey: 17:59 HEENT: Head Other hematoma above L eye. ph Assessment: 17:57 General: Appears in no apparent distress. uncomfortable, Behavior is calm, cooperative, ph appropriate for age. Pain: Complains of pain in left shoulder and left arm. Neuro: Level of Consciousness is awake, alert, obeys commands, Oriented to person, place, time, situation. Cardiovascular: Capillary refill < 3 seconds in bilateral fingers Patient's skin is warm and dry. Respiratory: Airway is patent Respiratory effort is even, unlabored, Respiratory pattern is regular, symmetrical. Musculoskeletal: Range of motion: limited in left shoulder. Injury Description: hematoma above L eye. Vital Signs: 17:23 BP 189 / 108; Pulse 86; Resp 18; Temp 97.6; Pulse Ox 99% ; Weight 122.47 kg; Height 6 ph ft. 0 in. ; 19:09 BP 165 / 87; Pulse 78; Resp 18; Temp 97.6; Pulse Ox 99% on R/A; rv 17:23 Body Mass Index 36.62 (122.47 kg, 182.88 cm) ph Seth Coma Score: 18:00 Eye Response: spontaneous(4). Motor Response: obeys commands(6). Verbal Response: ph oriented(5). Total: 15. 19:09 Eye Response: spontaneous(4). Motor Response: obeys commands(6). Verbal Response: rv oriented(5). Total: 15. Trauma Score (Adult): 18:00 Eye Response: spontaneous(1); Verbal Response: oriented(1); Motor Response: obeys ph commands(2); Systolic BP: > 89 mm Hg(4); Respiratory Rate: 10 to 29 per min(4); Seth Score: 15; Trauma Score: 12 19:09 Eye Response: spontaneous(1); Verbal Response: oriented(1); Motor Response: obeys rv commands(2); Systolic BP: > 89 mm Hg(4); Respiratory Rate: 10 to 29 per min(4); Seth Score: 15; Trauma Score: 12 ED Course: 16:52 Patient arrived in ED. mg5 17:02 Litzy Mao PA-C is PHCP. sb4 17:02 Jak Woodson MD is Attending Physician. sb4 17:25 Triage completed. ph 17:25 Arm band placed on Patient placed in an exam room. ph 17:44 Shoulder Left (2 View) XRAY In Process Unspecified. EDMS 17:45 Darline Tavera, RN is Primary Nurse. ph 18:00 Patient has correct armband on for positive identification. Bed in low position. Call ph light in reach. Side rails up X 1. Door closed. Noise minimized. Warm blanket given. 18:00 Patient maintains SpO2 saturation greater than 95% on room air. Thermoregulation: warm ph blanket given to patient. 18:13 Head Brain Wo Cont CT In Process Unspecified. EDMS 18:34 Ameya Adams MD is Referral Physician. sb4 18:34 Benjie Chilel MD is Referral Physician. sb4 18:34 Daniel Evangelista MD is Referral Physician. sb4 19:09 No provider procedures requiring assistance completed. Patient did not have IV access rv during this emergency room visit. Administered Medications: 17:57 Drug: morphine IM 4 mg IM once Route: IM; Site: right deltoid; ph 19:08 Follow up: Response: No adverse reaction rv 17:57 Drug: Ondansetron Oral Disintegrating Tablet Oral Disintegrating Tablet 4 mg PO once ph Route: PO; 19:08 Follow up: Response: No adverse reaction rv 19:08 Drug: Cyclobenzaprine PO 10 mg PO once Route: PO; rv 19:08 Follow up: Response: No adverse reaction rv 19:08 Drug: Ketorolac IM 30 mg IM once Route: IM; Site: right deltoid; rv 19:08 Follow up: Response: No adverse reaction rv Medication: 18:01 VIS not applicable for this client. ph Output: 18:00 Urine: 0ml; Total: 0ml. ph Outcome: 18:34 Discharge ordered by MD. hermosillo 19:09 Discharged to home ambulatory, with significant other, rv 19:09 Condition: good 19:09 Discharge instructions given to patient, Instructed on discharge instructions, follow up and referral plans. medication usage, Demonstrated understanding of instructions, follow-up care, medications, Prescriptions given X 1, 19:10 Patient's length of stay was not longer than 2 hours. rv 19:10 Patient left the ED. rv Signatures: Dispatcher [employer] Darline Richards RN RN Ralph Lopez RN RN Litzy Dooley PA-C PA-C sb4 [place], [place] 5
[2023-04-25 20:24] VITALS: BP 165/87; TEMP 97.6; O2SAT 99
== END ==
LOC: ER 16:47
DX: S43.402A Unspecified sprain of left shoulder joint, initial encounter (principal); S00.83XA Contusion of other part of head, initial encounter
CPT/HCPCS: 70450; 73030; 96372; 99285; Q0162